=== PATIENT | female | born 1975 | race Caucasian/White ===

== ENCOUNTER 2020-05-12 07:47 | Emergency (ER) | payer MEDICAID, SELFPAY ==
[2020-05-12 07:59] VITALS: BP 101/64; PULSE 81; RESP 20; TEMP 36.8; O2SAT 97; BMI 31.5
[2020-05-12 08:06] VITALS: O2SAT 97
[2020-05-12 08:08] VITALS: BP 101/64; PULSE 82; RESP 20; TEMP 36.8; O2SAT 97
--- NOTE | 2020-05-12 08:38 | XR_ITS ---
EXAMINATION: XR CHEST CLINICAL INFORMATION: Cough. COMPARISON: Chest 02/11/2019. TECHNIQUE: Frontal view of the chest was obtained. FINDINGS: The lungs are well-expanded and clear of acute process. The heart size and pulmonary vascularity is normal. No gross bony abnormality seen. XR/XR chest 1V IMPRESSION: Unremarkable chest exam.
--- NOTE | 2020-05-12 08:39 | ED.URI ---
HPI - URI/Sore Throat General Chief Complaint: Upper Respiratory Symptoms Stated Complaint: flu like Time Seen by Provider: 05/12/20 08:27 Source: patient Mode of arrival: ambulatory Limitations: no limitations History of Present Illness HPI Narrative: patient comes to emergency room complaining of cough, mild chest discomfort while coughing, headache. Patient also complaining of chills, no fever. 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 patient reports 1 episode of vomiting today, no abdominal pain, no diarrhea. Related Data Allergies Allergy/AdvReac Type Severity Reaction Status Date / Time Penicillins [PENICILLINS] Allergy Unknown ANAPHYLAXIS Verified 05/12/20 07:58 Review of Systems Review of Systems: Constitutional : No Weight loss, No Fever, Complaining of chills, fatigue, general malaise ENT/Mouth : No Hearing loss, No Ear Pain, No Nasal Congestion, No Sinus Pain, No Hoarseness, complaining of mild sore throat, No Rhinorrhea, No Swallowing Difficulty Eyes: No Eye Pain, No Swelling, No Redness, No Foreign Body, No Discharge, No Vision Changes Cardiovascular : No Chest Pain, No SOB, No Dyspnea on Exertion, No Orthopnea, No Edema, No Palpitations Respiratory : patient complaining of cough, no sputum Gastrointestinal : patient currently has no nausea, reports 1 episode of vomiting, No Diarrhea, No Constipation, No abdominal Pain, No Hematochezia, No Melena Genitourinary : no irregular bleeding, No Dysuria, No Urinary Frequency, No Hematuria, No Urinary Incontinence, No Urgency, No Flank Pain, No Urinary Flow Changes, No Hesitancy Musculoskeletal : No joint pain, No Myalgias, No Joint Swelling Skin : No Skin Lesions, No rash Neuro : No Weakness, No Numbness, No Paresthesias, No Loss of Consciousness, No Dizziness, No Headache Psych : No Anxiety/Panic, No Depression, No SI/HI/AH/VH, No Social Issues, Heme/Lymph: No Bruising, No Bleeding,No Lymphadenopathy Endocrine : No Polyuria, No Polydipsia, No Temperature Intolerance PMFSH Past Medical History Medical History Anxiety Asthma Depression Social History Social History Alcohol intake: never Smoking Status: Current every day smoker Smoked in Last 30 Days: Yes Substance Use Type: Marijuana Advance Directives: No Advance Directives Information Provided: No Physical Exam Vital Signs: Vital Signs: Vital Signs Temp Pulse Resp BP Pulse Ox 05/12/20 09:48 81 103/65 05/12/20 08:08 98.2 F 82 20 101/64 97 05/12/20 08:06 97 05/12/20 07:59 98.2 F 81 20 101/64 97 Body Mass Index 31.5 Appearance: Alert. Oriented X3. No acute distress. Eyes: Pupils equal, round and reactive to light. ENT: Pharynx normal. Neck: Normal inspection. Neck supple. No lymph nodes noted. No crepitus CVS: Normal heart rate and rhythm. Pulses normal. Normal S1 and S2 Respiratory: No respiratory distress. Breath sounds normal. No Wheezing. No rales Abdomen: Soft and nontender. No rigidity. No distention. good BS x4 Skin: Skin warm and dry. Normal skin color. Normal skin turgor. Extremities: No lower extremity edema. No lower extremity edema. No Lacerations. No Rash Neuro: Oriented X 3. No motor deficit. No sensory deficit. Moving all extermities. No slurred speech. Course Course Course Narrative: I discussed the labs and imaging with the patient, patient tested positive for coronavirus. Chest x-ray does not show pneumonia. Patient's oxygen saturation within normal limits. MDM - URI/Sore Throat Lab Data Result diagrams: 05/12/20 08:53 05/12/20 08:53 Labs: Lab Results 05/12/20 05/12/20 05/12/20 Range/Units 08:52 08:53 08:53 WBC 5.1 (4.8-10.8) X10*3/uL RBC 4.68 (4.20-5.50) X10*6/uL Hgb 14.2 (12.0-16.0) g/dl Hct 40.3 (37-47) % MCV 86.1 (80-98) fL MCH 30.3 (27.0-33.0) pg MCHC 35.2 H (31.0-35.0) g/dl RDW 12.0 (11.0-16.0) % Plt Count 216 (160-400) X10*3/uL MPV 9.9 (9.4-12.3) fL Immature Gran % (Auto) 0.2 (0.0-0.4) % Neut % (Auto) 49.9 (45-73) % Lymph % (Auto) 36.2 (20-40) % [place] % (Auto) 10.5 (2-11) % Eos % (Auto) 2.8 (0-4) % Baso % (Auto) 0.4 (0-2) % Lymph # (Auto) 1.8 (1.2-4.9) X10*3/uL [place] # (Auto) 0.5 (0.1-1.2) X10*3/uL Eos # (Auto) 0.1 (0.0-0.4) X10*3/uL Baso # (Auto) 0.0 (0.0-0.2) X10*3/uL Abs Immat Gran (auto) 0.01 (0.00-0.03) X10*3/uL Absolute Neuts (auto) 2.5 (2.0-8.3) X10*3/uL Absolute Nucleated RBC 0.000 (0.0-0.012) X10*3/uL Nucleated RBC % (auto) 0.0 (0.0-0.2) /100WBC Sodium 140 (135-145) mmol/L Potassium 3.7 (3.3-5.1) mmol/l Chloride 105 (96-108) mmol/L Carbon Dioxide 29 (22-29) mmol/L Anion Gap 10 L (12-20) BUN 12 (9-16) mg/dL Creatinine 0.76 (0.5-1.4) mg/dL Estim Creat Clear Calc 88.8 Estimated GFR > 60 Random Glucose 90 (60-115) mg/dL Calcium 8.2 L (8.4-10.2) mg/dL Coronavirus (PCR) POSITIVE A (Negative) Discharge Plan Discharge Clinical Impression: COVID-19 Patient Disposition: Home, Self-Care Instructions: COVID-19 (Coronavirus Disease 2019) (ED) Additional Instructions: please stay isolated at home for the next 14 days. Please follow-up with your primary care physician. if you have any worsening shortness of breath, please return to the emergency room or call 911. Stand Alone Forms: Work/School Release
[2020-05-12 09:00] LABS: MANUAL DIFF FLAG NO
[2020-05-12 09:05] LABS: Basophils Percent Auto 0.4 % (0-2); Eosinophils Absolute Auto 0.1 X10*3/uL (0.0-0.4); Eosinophils Percent Auto 2.8 % (0-4); Hematocrit 40.3 % (37-47); Hemoglobin 14.2 g/dl (12.0-16.0); Imm Gran Abs Auto 0.01 X10*3/uL (0.00-0.03); Imm Gran Pct Auto 0.2 % (0.0-0.4); Lymphocytes Absolute Auto 1.8 X10*3/uL (1.2-4.9); Lymphocytes Percent Auto 36.2 % (20-40); Mean Corpuscular HGB Conc 35.2 g/dl (31.0-35.0); Mean Corpuscular Hemoglobin 30.3 pg (27.0-33.0); Mean Corpuscular Volume 86.1 fL (80-98); Mean Platelet Volume 9.9 fL (9.4-12.3); Monocytes Absolute Auto 0.5 X10*3/uL (0.1-1.2); Monocytes Percent Auto 10.5 % (2-11); Neutrophils Absolute Auto 2.5 X10*3/uL (2.0-8.3); Neutrophils Percent Auto 49.9 % (45-73); Platelet Count 216 X10*3/uL (160-400); Red Blood Count 4.68 X10*6/uL (4.20-5.50); White Blood Count 5.1 X10*3/uL (4.8-10.8)
[2020-05-12 09:33] LABS: Anion Gap 10 (12-20); Blood Urea Nitrogen 12 mg/dL (9-16); Calcium 8.2 mg/dL (8.4-10.2); Carbon Dioxide 29 mmol/L (22-29); Chloride 105 mmol/L (96-108); Creatinine Clr Calc Pharmacy 88.8; Estimated Glomerular Filt Rate > 60; Glucose Random 90 mg/dL (60-115); Potassium 3.7 mmol/l (3.3-5.1); Sodium 140 mmol/L (135-145)
[2020-05-12 09:45] LABS: SARS COV2 PCR INHOUSE POSITIVE (Negative)
[2020-05-12 09:48] VITALS: BP 103/65; PULSE 81
== END 2020-05-12 11:22 | disposition home or self-care (01) ==
PROVIDERS: Emergency Provider Emergency Medicine
DX: U07.1 COVID-19 (principal); R05 Cough; R07.9 Chest pain, unspecified; R51.9 Headache, unspecified; F17.200 Nicotine dependence, unspecified, uncomplicated; Z71.6 Tobacco abuse counseling; F12.90 Cannabis use, unspecified, uncomplicated
CPT/HCPCS: 36415; 71045; 80048; 85025; 99283; 99284; U0003

== ENCOUNTER 2021-08-01 18:11 | Emergency (ER) | payer MEDICAID, SELFPAY ==
[2021-08-01 18:15] VITALS: BP 117/83; PULSE 76; RESP 18; TEMP 36.9; O2SAT 100; BMI 30.2
--- NOTE | 2021-08-01 19:03 | ED_ITS ---
HPI - Dental/Oral General Chief complaint: Dental/Oral Stated complaint: [place] tooth extraction- sharp pain (right) Time Seen by Provider: 08/01/21 19:01 Source: patient Mode of arrival: ambulatory Limitations: no limitations History of Present Illness HPI Narrative: This is a 46-year-old female past medical history anxiety, depression and asthma presenting to the emergency department complaints of 10 at at 10 pain status post wisdom teeth removal. Patient tells me that she had her right lower wisdom tooth extracted on July 25 without complications, she has no experiencing severe pain. She was not put on antibiotics. He is a current daily smoker and has continued to smoke even after procedure. She denies fevers, chills, nausea, vomiting, chest pain, shortness of breath, abdominal pain, weakness, lethargy, sore throat, ear pain pain with swallowing. MD Complaint: tooth pain Location: Tooth # (17) Teeth map: 1. Lower right wisdom tooth removed on 07/25/2021 Onset (ago): day(s) (7) Duration: constant Severity: severe Severity scale (1-10): 10 Relieving factors: nothing Exacerbating factors: nothing Context: other (Recent extraction of wisdom tooth.) Treatment prior to arrival: none Related Data Previous Rx's Medication Instructions Recorded oxycodone 5 mg tablet 5 mg PO BID PRN #6 tab 08/01/21 Allergies Allergy/AdvReac Type Severity Reaction Status Date / Time Penicillins [PENICILLINS] Allergy Severe ANAPHYLAXIS Verified 08/01/21 18:15 Review of Systems Review of Systems: Constitutional : No Fever, No Chills, Cardiovascular : No Chest Pain, No SOB HEENT: No sore thorat, No difficulty swollowing, + pain overlying area around tooth #17 Respiratory : No Dyspnea Gastrointestinal : No abdominal pain Musculoskeletal : No Joint Swelling Skin : No rash, No skin laceration Neuro : No Weakness, No Numbness Psych : No SI/HI Yes all other systems are reviewed and are negative PMFSH Past Medical History Attestation statement: The following information was validated with the patient. Source: old records reviewed and nursing notes reviewed Medical History Anxiety Asthma Depression Social History Social History Alcohol intake: never Substance Use Type: Marijuana Advance Directives: No Advance Directives Information Provided: Yes Patient : No Physical Exam Vital Signs: Vital Signs: Last Vital Signs Temp 98.5 F 08/01/21 18:15 Pulse 76 08/01/21 18:15 Resp 18 08/01/21 18:15 BP 117/83 08/01/21 18:15 Pulse Ox 100 08/01/21 18:15 BMI result Body Mass Index 30.2 VSS Appearance: Alert.? Oriented X3.? No acute distress.? Head: Normocephalic, atraumatic, no step-offs or deformities Eyes: Pupils equal, round and reactive to light.? ENT: Pharynx normal.?+ pain to there area where tooth #17 would be. Patient recently got it extracted, no overlying skin changes, no abscess formation, no erythema or swelling. Area appears to be healing well. + pain to palpation Neck: Normal inspection.? Neck supple.? CVS: Normal heart rate and rhythm.? Pulses normal.? Respiratory: No respiratory distress.? Breath sounds normal.? Abdomen: Soft and nontender.? Skin: Skin warm and dry.? Normal skin color.? Normal skin turgor.? Neuro: Oriented X 3.? No motor deficit.? No sensory deficit. Course Reevaluation(s) Reevaluation #1: I am sending patient home on oxycodone 5 mg p.o. b.i.d. as needed for pain. I have advised her that this is a narcotic and can cause dependence. I have checked her Mass Pat it appears as though she has never filled narcotic before. I have advised her to follow-up with her dentist. At this time I do not feel as though initiation of an antibiotic is appropriate. I feel comfortable with discharge home with PCP and dental follow-up tomorrow. Time: 19:19 MDM - Dental/Oral MDM Narrative Medical decision making narrative: [age] yo f pmhx anxiety, depression, asthma presents with pain overlying area of tooth 17., patient recently got tooth 17. Extracted on July 25, with no complications. She reports severe pain. Not on antibiotics. Reports continuing to smoke despite being told not to Physical examination significant for pain to palpation where to is 17. Would be, appears to be healing well no overlying skin changes, abscess formation or erythema. Plan at this time is to discharge patient home with dental follow-up. Medical Records Attestation: I reviewed the patient's medical records. Lab Data Attestation: I reviewed the patient's lab results. Critical Care Time Critical Care Time Critical Care Time: No Discharge Plan Discharge Clinical Impression: Toothache Patient Disposition: Home, Self-Care Instructions: Toothache (ED) Additional Instructions: Take your medications as prescribed. If you were prescribed antibiotics today, it is important that you take your medication to their entirety, do not skip any doses, do not finish them early. Follow-up with your primary care provider this week. Please follow up with a dentist tomorrow. Return to the emergency department with new or worsening symptoms. In case of emergency call 911 I attest that I have reviewed patients MassPAT, and at the time prescribing the patient a controlled substance is appropriate based off of patients diagnosis and treatment plan. Prescriptions: New oxycodone 5 mg tablet 5 mg PO BID PRN (Reason: pain) Qty: 6 RF: 0 Referrals: Physician,Unknown J [Primary Care Provider] - 2 days Stand Alone Forms: Dental Emergency Numbers
== END 2021-08-01 19:28 | disposition home or self-care (01) ==
PROVIDERS: Emergency Provider Internal Medicine
DX: K08.89 Other specified disorders of teeth and supporting structures (principal)
CPT/HCPCS: 99283

== ENCOUNTER 2021-10-02 12:51 | Emergency (ER) | payer MEDICAID, SELFPAY ==
--- NOTE | ~2021-10-02 | XR_ITS ---
EXAMINATION: XR CHEST CLINICAL INFORMATION: Chest pain COMPARISON: Chest x-ray 05/12/2020 TECHNIQUE: Frontal view of the chest was obtained. 2:05 PM FINDINGS: No significant abnormality is noted involving the heart, lungs, mediastinum, bony thorax or soft tissues. XR/XR chest 1V IMPRESSION: Unremarkable examination.
[2021-10-02 13:36] VITALS: BP 110/76; PULSE 86; RESP 18; O2SAT 100; BMI 30.7
--- NOTE | 2021-10-02 13:38 | ECG_ITS ---
Test Reason : CHEST PAIN Blood Pressure : / mmHG Vent. Rate : 080 BPM Atrial Rate : 080 BPM P-R Int : 152 ms QRS Dur : 086 ms QT Int : 386 ms P-R-T Axes : 053 021 023 degrees QTc Int : 445 ms Normal sinus rhythm Normal ECG When compared with ECG of 11-FEB-2019 18:24, No significant change was found Referred By: Generic ED Physician Electronically Signed By:GABRIELA WELDON
[2021-10-02 14:03] LABS: MANUAL DIFF FLAG NO
[2021-10-02 14:04] LABS: Appearance Urine HAZY; Color Urine YELLOW; Eosinophils Absolute Auto 0.2 X10*3/uL (0.0-0.4); Eosinophils Percent Auto 2.4 % (0-4); Glucose Urine UA NEG (NEG); Hematocrit 40.3 % (37.0-47.0); Hemoglobin 13.8 g/dl (12.0-16.0); Imm Gran Abs Auto 0.02 X10*3/uL (0.00-0.03); Imm Gran Pct Auto 0.3 % (0.0-0.4); Leukocyte Esterase Urine NEG (NEG); Lymphocytes Absolute Auto 2.3 X10*3/uL (1.2-4.9); Lymphocytes Percent Auto 32.2 % (20-40); Mean Corpuscular HGB Conc 34.2 g/dl (31.0-35.0); Mean Corpuscular Hemoglobin 29.2 pg (27.0-33.0); Mean Corpuscular Volume 85.2 fL (80.0-98.0); Monocytes Absolute Auto 0.3 X10*3/uL (0.1-1.2); Monocytes Percent Auto 4.7 % (2-11); Neutrophils Absolute Auto 4.2 x10*3/uL (2.0-8.3); Neutrophils Percent Auto 60.4 % (45-73); Nitrite Urine NEG (NEG); PH 5.5 (5.0-8.0); Platelet Count 263 X10*3/uL (160-400); Red Blood Count 4.73 X10*6/uL (4.20-5.50); Red Cell Distribution Width 12.7 % (11.0-16.0); Specific Gravity - Urine 1.025 (1.005-1.025); UACC Culture Trigger NO; Urine Blood 1+ (NEG); Urine Ketones NEG (NEG); Urine Protein NEG (NEG-TRACE)
[2021-10-02 14:06] LABS: UPreg QC Valid YES; Urine Pregnancy NEGATIVE (NEGATIVE)
[2021-10-02 14:17] LABS: Bacteria Urine TRACE /LPF; Mucus Urine TRACE /LPF; RBC Urine 0 /HPF (0); Squamous Epithelial Cell Urine TRACE /LPF; WBC Urine 0-2 /HPF (0-4)
[2021-10-02 14:22] LABS: Anion Gap 12 (12-20); Blood Urea Nitrogen 11 mg/dL (9-16); Calcium 9.3 mg/dL (8.4-10.2); Carbon Dioxide 23 mmol/L (22-29); Chloride 109 mmol/L (96-108); Creatinine Clr Calc Pharmacy 95.3; Estimated Glomerular Filt Rate > 60; Glucose Random 117 mg/dL (60-115); Potassium 3.8 mmol/L (3.3-5.1); Sodium 140 mmol/L (135-145)
[2021-10-02 14:30] LABS: Troponin-I High Sensitivity < 3.5 ng/L (<3.5-17.0)
== END 2021-10-02 18:12 | disposition left against medical advice (07) ==
LOC: HO.ED 15:27
PROVIDERS: Emergency Provider Emergency Medicine; PCP Family Medicine
DX: R07.9 Chest pain, unspecified (principal); F41.9 Anxiety disorder, unspecified; J45.909 Unspecified asthma, uncomplicated; F12.90 Cannabis use, unspecified, uncomplicated
CPT/HCPCS: 36415; 71045; 80048; 81001; 81025; 84484; 85025; 93005; 99283

== ENCOUNTER 2022-06-08 12:36 | Outpatient (REF) | payer MEDICAID, SELFPAY ==
--- NOTE | ~2022-06-08 | US_ITS ---
EXAMINATION: US RETROPERITONEAL LIMITED (RENAL ONLY) CLINICAL INFORMATION: Microscopic hematuria. COMPARISON: None TECHNIQUE: Real-time imaging of the kidneys. FINDINGS: RIGHT KIDNEY: 11.5 x 6.0 x 5.3 cm (SAG x AP x TRV). The kidney is normal in size, contour, and echogenicity. Renal cortical thickness is normal. No calculi or focal parenchymal lesions. There is pelviectasis, without renetta hydronephrosis. LEFT KIDNEY: 11.6 x 6.0 x 4.9 cm (SAG x AP x TRV). The kidney is normal in size, contour, and echogenicity. Renal cortical thickness is normal. No focal parenchymal lesions or hydronephrosis. At the upper pole, a 4 mm nonobstructing calculus is seen, with twinkle artifact. US/US renal BI IMPRESSION: 1. A 4 mm nonobstructing left renal calculus is seen. No right renal calculus is seen. 2. There is mild right renal pelviectasis. No renetta hydronephrosis is seen bilaterally. 3. No renal mass lesion is noted bilaterally.
== END 2022-06-08 12:37 | disposition home or self-care (01) ==
LOC: HO.US 12:36
PROVIDERS: Visit Provider Family Medicine
DX: R31.29 Other microscopic hematuria (principal)
CPT/HCPCS: 76775

== ENCOUNTER 2022-06-27 13:14 | Outpatient (REF) | payer MEDICAID, SELFPAY ==
[2022-06-27 15:39] LABS: Thyroid Stimulating Hormone 1.89 uIU/mL (0.32-4.0)
== END 2022-06-27 13:15 | disposition home or self-care (01) ==
LOC: HO.LAB 13:14
PROVIDERS: PCP Family Medicine; Visit Provider Advanced Practice Midwife
DX: R23.2 Flushing (principal); R45.86 Emotional lability; Z78.0 Asymptomatic menopausal state
CPT/HCPCS: 36415; 83001; 84443; 99212

== ENCOUNTER 2023-03-12 20:47 | Emergency (ER) | payer MEDICAID, SELFPAY ==
--- NOTE | 2023-03-12 | ECG_ITS ---
Test Reason : CHEST PAIN Blood Pressure : / mmHG Vent. Rate : 065 BPM Atrial Rate : 065 BPM P-R Int : 160 ms QRS Dur : 092 ms QT Int : 422 ms P-R-T Axes : 046 016 026 degrees QTc Int : 438 ms Normal sinus rhythm Incomplete right bundle branch block Borderline ECG When compared with ECG of 02-OCT-2021 13:43, No significant change was found Referred By: Generic ED Physician Electronically Signed By:GARO REID
--- NOTE | ~2023-03-12 | XR_ITS ---
EXAMINATION: XR CHEST 2 VIEWS CLINICAL INFORMATION: Cough. COMPARISON: Chest radiographs dated 09/24/2021. TECHNIQUE: Frontal and lateral views of the chest were obtained. FINDINGS: The heart, great vessels, pulmonary vasculature and mediastinum are normal. The lungs show no focal infiltrate, effusion or pneumothorax. There is bilateral bronchiolar wall thickening. There is no acute osseous abnormality. XR/XR chest 2V IMPRESSION: 1. No focal infiltrate or congestive heart clear seen. 2. There is bilateral bronchiolar wall thickening, which can be associated with acute bronchiolitis or reactive airways disease.
[2023-03-12 21:14] VITALS: BP 126/73; PULSE 67; RESP 16; TEMP 37.1; O2SAT 100; BMI 29.8
[2023-03-12 21:40] LABS: Hematocrit 37.9 % (37.0-47.0); Hemoglobin 13.4 g/dl (12.0-16.0); Mean Corpuscular HGB Conc 35.4 g/dl (31.0-35.0); Mean Platelet Volume 10.1 fL (9.4-12.3); Platelet Count 269 X10*3/uL (160-400); Red Blood Count 4.46 X10*6/uL (4.20-5.50); Red Cell Distribution Width 12.5 % (11.0-16.0); White Blood Count 8.2 X10*3/uL (4.8-10.8)
[2023-03-12 21:50] LABS: COVID-19 Test Negative (Negative); IDNOW Serial# BCCEAD1C
[2023-03-12 22:01] LABS: Alanine Aminotransferase 9 U/L (0-31); Alkaline Phosphatase 80 U/L (39-117); Anion Gap 12 (12-20); Aspartate Amino Transferase 17 U/L (5-31); Bilirubin Total 0.7 mg/dL (0.0-1.0); Blood Urea Nitrogen 13 mg/dL (9-16); Calcium 9.3 mg/dL (8.4-10.2); Carbon Dioxide 28 mmol/L (22-29); Chloride 107 mmol/L (96-108); Creatinine Clr Calc Pharmacy 75.1; Estimated Glomerular Filt Rate > 60; Glucose Random 96 mg/dL (60-115); Potassium 3.5 mmol/L (3.3-5.1); Sodium 143 mmol/L (135-145); Total Protein 7.2 g/dL (6.5-8.0)
[2023-03-12 22:44] LABS: Troponin-I High Sensitivity < 2.7 ng/L (<3.5-17.0)
== END 2023-03-13 01:06 | disposition left against medical advice (07) ==
PROVIDERS: Emergency Provider Emergency Medicine; PCP Family Medicine
DX: R07.9 Chest pain, unspecified (principal); R05.9 Cough, unspecified; Z20.822 Contact with and (suspected) exposure to COVID-19
CPT/HCPCS: 36415; 71046; 80053; 84484; 85027; 87635; 93005; 99283

== ENCOUNTER 2024-09-12 21:00 | Emergency (ER) | payer MEDICAID, SELFPAY ==
[2024-09-12 21:15] VITALS: BP 106/65; PULSE 78; RESP 16; TEMP 36.6; O2SAT 98; BMI 29.5
--- OUTSIDE RECORDS SUMMARY | 2024-09-13 00:40 | XMS_ITS | Encounter Summary ---
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 Role Phone Maliha Bashir MD Primary Care Provider [phone] Reason for Visit * Reason Comments Med Change Request Encounter Details Date Type Department Care Team ([facility] Contact Info) Description 09/07/2024 Refill [facility]ULT D[facility]AL [address], [place] [id number] Justin Ching, LYNETTE [address] [place] [address] Dental caries Social History Tobacco Use Types Packs/Day Years Used Date Smoking Tobacco: Every Day Cigarettes Passive Smoke Exposure: Never Smokeless Tobacco: Never Alcohol Use Standard Drinks/Week Comments Never 0 (1 standard drink = 0.6 oz pur e alcohol) Depression Answer Date Recorded Patient Health Questionnaire-9 Score 21 06/12/2022 Housing Stability Answer Date Recorded What is your housing situation today? I do not have housing (Staying with others, in a hotel, in a mcc, living outside on the street, on a beach, in a car, or in a park 04/14/[address] you li ve. Do you have problems with any of the following? I am not sure 04/14/2023 Food Insecurity Answer Date Recorded Within the past 12 months, y ou worried that your food would run out before you got money to buy more: Sometimes True 2022 Within the past 12 months,th e food you bought just didn't last and you didn't have enough money to get more: Sometimes True 05/13/2023 Transportation Answer Date Recorded In the past 12 months, has l ack of transportation kept you from medical appts, meetings, work or from getting things needed for daily living? No 05/13/2023 Utilities Answer Date Recorded In the past 12 months, has t he electric, gas, oil or water company threatened to shut off services in your home? No 05/13/2023 Depression Answer Date Recorded Patient Health Questionnaire-2 Score 6 10/08/2022 Comments Unknown Sex and Gender Information Value Date Recorded Sex Assigned at Female 05/07/2022 10:37 AM EDT Legal Sex Female 10:37 AM EDT Gender Identity Female 05/07/2022 10:37 AM EDT Sexual Orientation Straight 05/07/2022 10 :37 AM EDT documented as of this encounter Plan of Treatment Upcoming Encounters Date Type Department Care Team (Late st Contact Info) Description 10/07/2024 2:00 PM EDT Office Visit [facility] ADULT D[facility]AL [address] [place] [address] Rachel Villalta documented as of this encounter Visit Diagnoses Diagnosis Dental caries Unspecified dental caries documented in this encounter Additional Health Concerns Assessment Noted Time PHQ-9 Depression Total Score: 21 022 1:20 PM EST documented as of this encounter Care Teams Marine [employer] Repairer Relationship Specialty Start Date End Date Maliha Bashir MD [address] [place] [address] PCP - General Family Medicine 03/08/21 documented as of this encounter
--- OUTSIDE RECORDS SUMMARY | 2024-09-13 00:40 | XMS_ITS | Data Portability ---
Author Organization [facility], , [facility] Address [address] [place] [address] Care Team Providers Care Java Portal Developer Name Role Phone CONSTANCE BENSON Primary Care Provider ADRIAN Giraldo Second Helper Assessment Encounter Date Assessment Date Assessment LastModified by Organization Details LastModified Time 10/07/2015 10/07/2015 Viral URI with costochondritis .? ? ? 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 it should help benefit her current symptoms. [email or web address] Not available 03/02/2016 11:45:09 Plan of Treatment Reminders Order Date Submit Date Provider Last Modified By Organization Details Last Modified Time Details Appointments None recorded. 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 now havinh pain and spasms. please evaluate and treat 2015 016 [facility], [address] [place] [address], [place], [address], 7 05:01:59 Procedures None recorded. Surgeries None recorded. Imaging None recorded. Medication Orders gabapentin 100 mg capsule 2015 016 DBA_PATCH_ [id number] [facility], [address] [place] [address], [address], 6 04:06:43 naproxen 375 mg tablet 2015 016 [facility], [address] [place] [address], [address], 6 04:06:50 ciprofloxa amos 250 mg tablet 2015 016 [facility], [address] [place] [address], [address], 6 04:03:31 Nicoderm CQ 14 mg/24 hr daily transderma l patch 2015 016 [facility], [address] [place] [address], [address], 6 04:03:16 Wellbutrin SR 150 mg tablet, 12 hr sustained- release 2015 016 DBA_PATCH_ [id number] [facility], [address] [place] [address], [address], 6 04:03:12 dexamethas one 0.75 mg tablet 2015 016 INTERFACE [facility], [address] [place] [address], [address], 6 14:09:44 Wellbutrin SR 150 mg tablet, 12 hr sustained- release 2015 016 [email or web address] [facility], [address] [place] [address], [address], 6 13:52:29 Nicoderm CQ 14 mg/24 hr daily transderma l patch 2015 016 [email or web address] [facility], [address] [place], [address], 6 13:52:29 Calcium 600 + D(3) 600 mg-10 mcg (400 unit) tablet 2015 016 ncypher [facility], [address] [place], [address], 6 11:18:55 Patient TargetsNo targets recorded. Patient Instructions Encounter Date Encounter Id Patient Instructions Last Modified By Organization Details Last Modified Time 09/13/2015 [id number] Quitting Tobacco: Care Instructions Not available 09/13/2015 12:18:56 deciding about using medicines to quit smoking Not available 09/13/2015 12:18:56 01/05/2016 [id number] urinary tract infection (uti) education DBA_PATCH_ 217 Not available 06/23/2016 04:03:31 deciding about using medicines to quit smoking DBA_PATCH_ 217 Not available 06/23/2016 04:02:50 Quitting Tobacco: Care Instructions DBA_PATCH_ 217 Not available 06/23/2016 04:02:50 Counseling done {{Patient not ready to quit Contemplati ng quitting Taperin g Cigarettes tyrell d up for support prescrip tion for stop smoking medication given}} {{Patient not ready to quit Contemplati ng quitting Taperin g Cigarettes tyrell d up for support prescrip tion for stop smoking medication given}} Goal for follow up visit {{adding exercise regular meals stress management impro ving sleep therapist identifying sponsor}} {{adding exercise regular meals stress management impro ving sleep therapist identifying sponsor}} {{adding exercise regular meals stress management impro ving sleep therapist identifying sponsor}}My Health To Do List {{go to goCatch www.gate5.Teachernow or call s ign up for priscila text 2 quit or other stop smoking priscila contact Funambol.gov}} {{go to quitRoozt.com or call s ign up for priscila text 2 quit or other stop smoking priscila contact smokeStockRadar.gov}} {{go to quitAviate.Eloqua or call s ign up for priscila text 2 quit or other stop smoking priscila contact Funambol.gov}} [email or web address] Not available 01/05/2016 17:41:14 03/02/2016 [id number] You have received a new prescription today. We have discussed indications for new prescription, risks and benefits of medication, common side effects and how to manage, and reasons to notify prescriber of adverse effects or discontinuation. [email or web address] Not available 03/02/2016 11:40:52 05/25/2016 [id number] deciding about using medicines to quit smoking DBA_PATCH_ 217 Not available 06/23/2016 04:10:27 Quitting Tobacco: Care Instructions DBA_PATCH_ 217 Not available 06/23/2016 04:10:27 Counseling done {{Patient not ready to quit Contemplati ng quitting Taperin g Cigarettes tyrell d up for support prescrip tion for stop smoking medication given}} {{Patient not ready to quit Contemplati ng quitting Taperin g Cigarettes tyrell d up for support prescrip tion for stop smoking medication given}} Goal for follow up visit {{adding exercise regular meals stress management impro ving sleep therapist identifying sponsor}} {{adding exercise regular meals stress management impro ving sleep therapist identifying sponsor}} {{adding exercise regular meals stress management impro ving sleep therapist identifying sponsor}}My Health To Do List {{go to BuildersCloud or call s ign up for priscila text 2 quit or other stop smoking priscila contact smokeStockRadar.gov}} {{go to BuildersCloud or call s ign up for priscila text 2 quit or other stop smoking priscila contact smokeStockRadar.gov}} {{go to BuildersCloud or call s ign up for priscila text 2 quit or other stop smoking priscila contact Funambol.gov}} [email or web address] Not available 05/25/2016 17:23:09 Reason for Referral strian through neck, thoraci c back adn lumbar 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 now havinh pain and spasms. please evaluate and treat Referring Physician: Radha Weeks, Family Medicine, Encounter Date: 03/02/2016 Results Created Date Observation Date Name Description Value Unit Range Abnormal Flag Note LastModifiedBy Organization Detail LastModifiedTime 01/05/20 16 01/05/2016 POC UA glu UA NEGATI VE Not Available [address], [address], 01/05/2016 17:37:22 01/05/20 16 01/05/2016 POC UA clarity UA CLEAR Not Available [address], [address], 01/05/2016 17:37:22 01/05/20 16 01/05/2016 POC UA uro UA 0.2000 Not Available [address], [address], 01/05/2016 17:37:22 01/05/20 16 01/05/2016 POC UA ket UA NEGATI VE Not Available [address], [address], 01/05/2016 17:37:22 01/05/20 16 01/05/2016 POC UA pro UA NEGATI VE Not Available [address], [address], 01/05/2016 17:37:22 01/05/20 16 01/05/2016 POC UA nit UA NEGATI VE Not Available [address], [address], 01/05/2016 17:37:22 01/05/20 16 01/05/2016 POC UA ashleigh UA NEGATI VE Not Available [address], [address], 01/05/2016 17:37:22 01/05/20 16 01/05/2016 POC UA pH UA 6.0000 Not Available [address], [address], 01/05/2016 17:37:22 01/05/20 16 01/05/2016 POC UA SG UA 1.0200 Not Available [address], [address], 01/05/2016 17:37:22 01/05/20 16 01/05/2016 POC UA color UA YELLOW Not Available [address], [address], 01/05/2016 17:37:22 01/05/20 16 01/05/2016 POC UA blo UA 2+ abnormal Not Available [address], [address], 01/05/2016 17:37:22 01/05/20 16 01/05/2016 POC UA pro UA NEGATI VE Not Available [address], [address], 01/05/2016 17:37:22 01/05/20 16 01/07/2016 cultu re, urine culture, urine, routine CULTU RE, URINE , ROUTI NE MICRO NUMBE R: [id number] TEST STATU S: FINAL SPECI MEN SOURC E: URINE SPECI MEN QUALI TY: ADEQU ATE RESUL T: Multi ple organ isms prese nt, each less than 10,00 0 CFU/m L. These organ isms, commo nly found on exter nal and inter nal genit aleyda, are consi dered to be colon izers . No furth er testi ng perfo rmed. Not Available [facility] [address], [place], [address], 01/12/2016 16:42:13 Result Notes None recorded. Problems Name Problem SNOMED Code Status Onset Date Resolution Date Notes Provider Name and Address Organization Details Recorded Time Tobacco dependence syndrome 51349704 Active Aixa Wilhelm RN [facility], [facility] 3 06:22:33 Dyspnea 679728793 Completed 05/27/2013 Not Available [facility] 3 02:02:46 Female genital organ symptoms 347677121 Completed 200605/03/2011 Not Available [facility] [place] 3 03:04:58 Alopecia 90932921 Completed 200605/03/2011 Not Available [facility] [place] 3 03:04:58 Common cold 38925381 Completed 200604/20/2011 Not Available [facility] 3 03:04:58 Allergic rhinitis 28194266 Completed 199904/20/2011 Not Available [facility] 3 03:04:58 Malaise and fatigue 402658110 Completed 200604/20/2011 Not Available [facility] [place] 3 03:04:58 Urticaria 232985695 Completed 200605/03/2011 Not Available [facility] 3 03:04:58 Vaginitis and vulvovagin itis Completed 200704/20/2011 Not Available [facility] 3 03:04:58 Problem Notes None recorded. Procedures Surgical History Date Name Laterality Status Provider Name and Address Organization Details Recorded Time 6 Smoking cessation counseling completed Zbigniew Cooper LPN [facility] 05/25/2016 17:23:09 6 Smoking cessation counseling completed [facility] 01/05/2016 17:41:14 6 POC Urinalysis Testing completed [facility] 01/05/2016 17:38:12 6 Smoking cessation counseling completed [facility] 09/13/2015 11:45:32 6 Carbon Monoxide Testing completed [facility] 09/13/2015 11:45:22 6 Smoking cessation counseling completed [facility] 08/31/2015 11:26:05 3 Smoking cessation counseling completed Shoshana Jaramillo [facility] 02/26/2013 09:39:30 1 Smoking cessation counseling completed Lauren Jasso [facility] 04/12/2011 10:40:45 Imaging Results None recorded. Procedure Notes None recorded. Medical Equipment None Reported. Allergies Allergen ID Allergen Name Allergen Category Reaction Reaction Severity Criticality Documentation Date Start Date Code Code System Note Provider Name and Address Organization Details Recorded Time Product containin g penicilli n (product) medicatio n Not available Not available Not available 09/15/2009 64169 8001 SNOMED Not Available [facility] 1 06:05:41 Medications Name Sig Start Date Stop Date Status Note LastModified by Organization Details LastModified Time cyclobenzap rine 10 mg tablet TAKE 1 TABLET(S) 3 TIMES A DAY BY ORAL ROUTE NEEDED. 03/02 completed Not Available Not Available Not Available Nasal [place] (oxymetazol ine) 0.05 % TAKE ACCORDING TO LABEL INSTRUCTI ONS active Not Available Not Available No t Available bupropion HCl SR 150 mg tablet,12 hr sustained-r elease TAKE 1 TAB IN AM X1 WEEK THEN 1 TAB TWICE DAILY (2ND DOSE BEFORE 4PM) START 1-2 WKS BEFORE PATCHES active Not Available Not Available No t Available prednisone 10 mg tablet 6 tabs daily x 2 days then 5 tabs daily x 2 days then 4 tabs daily x 2 days then 3 tabs daily x 2 days then 2 tabs daily x 2 days then 1 tabs daily x 2 day 2009 active Not Available Not Available Not Avai lable naproxen 375 mg tablet TAKE 1 TABLET BY MOUTH TWICE A DAY NEEDED TAKE WITH FOOD 05/25 completed Not Available Not Available Not Available nicotine 14 mg/24 hr daily transdermal patch APPLY 1 PATCH TO SKIN EVERY MORNING AND REMOVE AT BEDTIME active Not Available Not Available No t Available azithromyci n 250 mg tablet Take 2 tablets (500 mg) by oral route once daily for 1 day then 1 tablet (250 mg) by oral route once daily for 4 days 05/25 completed Not Available Not Available Not Available prednisone 20 mg tablet TAKE 2 TABLETS BY MOUTH EVERY DAY FOR 5 DAYS 05/25 completed Not Available Not Available Not Available acetaminoph en 300 mg-codeine 30 mg tablet TAKE 1 TABLET BY MOUTH EVERY 6 HOURS NEEDED SEVERE PAIN 03/02 completed Not Available Not Available Not Available ciprofloxac in 250 mg tablet TAKE 1 TABLET BY MOUTH EVERY 12 HOURS FOR 5 DAYS 03/02 completed Not Available Not Available Not Available oxycodone-a cetaminophe n 5 mg-325 mg tablet active Not Available Not Available No t Available codeine 10 mg-guaifene sin 100 mg/5 mL Syrup Take 5 mL every 4 hours by oral route as needed. 2011 active Not Available Not Available Not Avai lable dexamethaso ne 0.75 mg tablet TAKE 3 TABLET(S) EVERY DAY BY ORAL ROUTE IN THE MORNING FOR 5 DAYS. 01/04 completed Not Available Not Available Not Available hydroxyzine HCl 25 mg tablet Take 1 tablet 4 times a day by oral route as needed. 2009 active Not Available Not Available Not Avai lable codeine 10 mg-guaifene sin 100 mg/5 mL oral liquid Take 10 mL every 4 hours by oral route. 2010 active Not Available Not Available Not Avai lable gabapentin 100 mg capsule TAKE 1 TO 2 CAPSULES BY MOUTH TWICE A DAY , THEN 1 TO 3 CAPSULES AT BEDTIME 05/25 completed Not Available Not Available Not Available ibuprofen 600 mg tablet active Not Available Not Available Not Available loratadine 10 mg tablet Take 1 tablet every day by oral route for 30 days. 2009 active Not Available Not Available Not Avai lable naproxen 500 mg tablet active Not Available Not Available Not Available oxycodone 5 mg tablet active Not Available Not Available No t Available Bactrim DS 800 mg-160 mg tablet Take 1 tablet every 12 hours by oral route for 10 days. 04/22 completed Not Available Not Available Not Available cyclobenzap rine 5 mg tablet active Not Available Not Available Not Available ProAir HFA 90 mcg/actuati on aerosol inhaler Inhale 2 puffs every 4-6 hours by inhalatio n route as needed. 2012 active Not Available Not Available Not Avai lable Calcium 600 + D(3) 600 mg-10 mcg (400 unit) tablet Take 1 tablet twice a day by oral route. 03/02 completed Not Available Not Available Not Available Vitals Date Recorded Body height Body weight Body mass index (BMI) Heart rate Systolic blood pressure Diastolic blood pressure Provider Name and Address Organization Details Last Updated DateTime 6 158.75 cm 29877.1 8683 g 28.6 kg/m2 76 /min 98 mm[Hg] 66 mm[Hg] [facility] 6 11:38:45 Date Recorded Body height Body weight Body mass index (BMI) Oxygen saturation Oxygen saturation in Arterial blood by Pulse oximetry Body temperature Heart rate Systolic blood pressure Diastolic blood pressure Provider Name and Address Organization Details Last Updated DateTime 6 158.75 cm 05647.8 1735 g 27.9 kg/m2 99 % 99 % 98.5 [degF] 82 /min 134 mm[Hg] 88 mm[Hg] Lianet Peña TREE SURGEON HELPER [facility] 6 13:55:01 Date Recorded Body height Body weight Body mass index (BMI) Heart rate Systolic blood pressure Diastolic blood pressure Provider Name and Address Organization Details Last Updated DateTime 6 158.75 cm 47517.1 9 g 28.6 kg/m2 68 /min 100 mm[Hg] 70 mm[Hg] [facility] 6 16:53:46 Date Recorded Body height Body weight Body mass index (BMI) Heart rate Systolic blood pressure Diastolic blood pressure Provider Name and Address Organization Details Last Updated DateTime 6 158.75 cm 40422.7 3 g 23.4 kg/m2 80 /min 110 mm[Hg] 74 mm[Hg] Laura Perla [facility] 6 11:20:25 Date Recorded Body height Body weight Body mass index (BMI) Heart rate Systolic blood pressure Diastolic blood pressure Provider Name and Address Organization Details Last Updated DateTime 6 158.75 cm 29015.4 9 g 26.3 kg/m2 76 /min 126 mm[Hg] 72 mm[Hg] Zbigniew vargas TREE SURGEON HELPER [facility] 6 17:24:15 Social History Question Answer Notes LastModified by Organizat ion Details LastModified Time Tobacco Smoking Status Current Every Day Smoker 7 cigs a day Declined 01/05/16 03/02/16 Radha Weeks PA-C [address] [place] [address], [id number], [facility] 02/26/2013 09:58:40 What Is Your Level Of Alcohol Consumption? None Information not available 01/01/2013 Do You Wear A Helmet When Biking? Yes Information not available 09/13/2015 What Is Your Level Of Caffeine Consumption? Moderate Information not available 09/13/2015 How Much Tobacco Do You Chew? None Information not available 09/13/2015 What Type Of Diet Are You Following? REGULAR Information not available 09/13/2015 Education 12 Information no t available 09/13/2015 How Many Days In The Past Year Have You Had A Heavy Drinking Consumption (4+ Female, 5+ Male)? 0 Information not available 01/01/2013 Are There Any Guns Present In Your Home? No Information not available 09/13/2015 Live Alone Or With Others? With Others Son-16-- And Boyfriend [email or web address] Information not available 02/26/2013 Patient Has Health Care Proxy Signed And In Chart No Mother- Crystal Butterfield [email or web address] Information not available 07/11/2018 Marital Status Single [email or web address] Informatio n not available 02/26/2013 Mosquito Repellent Used Routinely Yes Information not available 09/13/2015 How Many Children Do You Have? 1 [email or web address] Information not available 02/26/2013 Seat Belts Used Routinely Yes Information not available 09/13/2015 Smoke Alarm In Home No Information not available 09/13/2015 General Stress Level High Information not available 09/13/2015 Do You Use Sunscreen Routinely? Yes Information not available 09/13/2015 Sex: Unknown Functional Status None recorded. Mental Status None recorded. Family History Relationship Description Onset Age of this Age Resolved Age Notes LastModified by Organization Details LastModified Time Mother Hypercholest erolemia [email or web address] Not available 2015 11:53:17 Father Alcoholism [email or web address] Not availabl e 09/13/2015 11:53:17 Father Disease of liver [email or web address] Not available 2015 11:53:17 Maternal Grandmother Diabetes mellitus [email or web address] Not available 2015 11:53:17 Notes:One brother and one si ster: healthy strong family hx of anxiety and depression Medical History No medical history recorded. Gynecological History Statement/Question Response Current Control Method None Date of LMP 05/20/2014 Obstetrics History GPAL:G 0 P 0 0 0 0 Immunizations Vaccine Type Date Status Note Provider Nam e and Address Organization Details Recorded Time Influenza, split virus, quadrivalent, PF 08/31/2015 completed Aixa Wilhelm RN [facility], [facility] 09/13/2015 05:43:23 Past Encounters Encounter ID Performer Location Encounter Start Date Encounter Closed Date Diagnosis/Indication Diagnosis SNOMED-CT Code Diagnosis ICD10 Code Diagnosis Note [id number] ASHWINI [facility], OFFICE [address] [place] [address] 05/24/2000 15:30:00 07/28/2008 02:02:29 [id number] ASHWINI [facility], OFFICE [address] [place] [address] 05/27/2000 10:00:00 07/28/2008 02:02:29 [id number] ASHWINI [facility], OFFICE [address] [place] [address] 05/28/2000 09:30:00 07/28/2008 02:02:29 [id number] ASHWINI [facility], OFFICE [address] [place] [address] [place] [address] 07/29/2006 12:26:13 07/29/2006 14:40:16 [id number] ASHWINI [facility], OFFICE [address] [place] [address] [place] [address] 08/20/2006 14:24:33 08/21/2006 08:42:07 [id number] ASHWINI [facility], OFFICE [address] [place] [address] 12/11/2006 10:31:02 12/11/2006 15:38:36 [id number] [facility] [address] [place] [id number] 12/11/2006 10:58:47 12/11/2006 10:58:55 [id number] ASHWINI [facility], OFFICE [address] [place] [address] 01/14/2007 11:45:37 01/14/2007 13:40:37 [id number] JAIDEN MARADIAGA [address] [place] [address] 04/22/2007 09:54:51 04/24/2007 12:23:05 [id number] [facility] [address] [place] [address] 04/22/2007 10:41:12 04/22/2007 10:41:[id number] [place] [address] 09/22/2007 15:03:27 07/28/2008 02:02:[id number] [place] [address] 09/29/2007 16:07:30 07/28/2008 02:02:29 [id number] [facility] [address] [place] [address] 09/30/2007 09:44:35 09/30/2007 09:44:[id number] [place] [address] 09/15/2009 11:22:24 09/15/2009 14:37:[id number] [place] [address] 02/07/2010 16:29:45 02/07/2010 17:21:17 [id number] [place] [address] [place] [address] 04/12/2011 10:34:32 04/12/2011 10:54:[id number] [place] [address] 05/04/2011 15:33:57 05/07/2011 14:31:30 [id number] SIOMARA Tejeda, [facility], [address] [place] [address] 07/20/2011 12:25:52 07/20/2011 13:03:30 [id number] Lauren Can LPN [address] [place] [address] 01/01/2013 10:43:57 01/01/2013 11:20:18 [id number] MD ASHWINI Xiong [address] [place] [address] 02/26/2013 09:30:50 02/26/2013 10:23:53 Adult health examination 983691542 Counseling 666973482 Tobacco user 002039978 E ncouraged smoking cessationa nd discussed associated health risks of being a smoker. If she decides she needs help with cessation, she can come in for support and/or medication . Administra tion of diphtheria, pertussis, and tetanus vaccine 054330462 Screening for malignant neoplasm of cervix 657608085 [id number] [facility], OFFICE [address] [place] [address] 04/27/2014 10:56:00 04/28/2014 08:10:41 Backache 914869491 improving but continues in PT/chiropr actic care. [id number] Tonja Nini [facility], OFFICE [address] [place] [address] 06/25/2014 09:34:59 06/25/2014 10:21:50 Adult health examination 452498246 UP TO DATE WITH PAP VITAMIN D SUPPLEMENT ENCOURAGED HAD HER FLU SHOT PREVIOUSLY Eruption [id number] Encou raged daily loratadine use. Emollient- unscented. Unscented soaps, detergents and creams. Avoid dryer sheets. Sjhe uses otc steroid cream. Will have her see derm [id number] Radha Weeks PA-C , [facility], OFFICE [address] [place] [address] 08/31/2015 11:17:17 08/31/2015 11:45:25 Acute upper respiratory infection 29025402 J06.9 Educated patient that URI is a viral illness of the upper airways. It is not bacterial and does not benefit from antibiotic s. Average duration of URI is 7-10 days but in a recent trial, treatment at 7-10 days of illness with antibiotic s, intranasal steroids, or placebo did not alter natural history at 3 weeks. Recommende d symptomati c treatments including NSAIDS, semi-uprig ht sleep position, antihistam rock at HS, limited course of nasal sympathomi metics and/or cough syrups, and nasal saline rinses with soft squeeze bottle or Neti pot. Return for fevers > 101 for 3 days, worsening sinus pain, or failure to resolve in 2-4 weeks. Diarrhea 56484297 R19.7 clear liquids, bland diet. avoid dairy and acidic foods. [id number] Lisbeth Burch , [facility], OFFICE [address] [place] [address] 09/13/2015 10:56:22 09/13/2015 12:16:15 Tobacco user 202523572 Z72.0 8 mins spent on smoking cessation counseling Adult heal th examination 762397956 Z00.00 HAD HER FLU SHOT PREVIOUSLY pap due later this year. [id number] Chio White , [facility], OFFICE [address] [place] [address] 10/07/2015 13:09:34 10/07/2015 14:10:19 Acute upper respiratory infection 50453197 J06.9 [id number] Radha Weeks PA-C , [facility], OFFICE [address] [place] [address] 01/05/2016 16:46:35 01/10/2016 15:19:39 Tobacco user 842963754 Z72.0 Urinary tr act infectious disease 73331932 N39.0 Patient instructed to push fluids, to follow up for persistent or worsening symptoms or fever or back pain. Cigarette smoker [id number] F17.210 Screening for malignant neoplasm of cervix [id number] Z12.4 Gynecologi c examination [id number] Z01.687 [id number] Radha Weeks PA-C , [facility], OFFICE [address] [place] [address] 03/02/2016 11:04:02 03/09/2016 09:39:25 Strain of back muscle [id number] S39.012A gentle heat followed by stretching . return to work attempt for Saturday. refer to PT Strain of neck muscle 36 [id number] S16.1XXA Strain of thoracic region [id number] S29.019A [id number] Bobo Calles MD , [facility], OFFICE [address] [place] [address] 05/25/2016 17:17:54 05/28/2016 13:34:45 Cigarette smoker [id number] F17.210 declined meds Tobacco user [id number] Z 72.0 Administra tive reason for encounter [id number] Z02.9 rtw note mar 06 signed and handed to pt. Health Concerns Section Related Observation LastModified by Organization Detai ls LastModified Time None Recorded Concern Status LastModified by Organization Details LastModified Time None Recorded Advance Directives Directive None Recorded Payers Encounter Date Sequence Insurance Name Policy Number Policy Low Covered Member ID Low Member ID Guarantor Name 09/13/2015 1 [facility] HEALTH NET PLAN (MEDICAID HMO) [id number] Cynthia Telles [id number] Cynthiachey Telles 10/07/2015 1 [facility] HEALTH COMMUNITY HEALTH PLAN (MEDICAID HMO) [id number] Cynthia Elfego [id number] Cynthiacheri Telles 01/05/2016 1 [facility] [employer] COMM[employer] HE[employer] PLAN (MEDICAID HMO) [id number] Cynthia Elfego [id number] Cynthia Elfego 03/02/2016 1 [facility] [employer] COMMUNITY HEALTH PLAN (MEDICAID HMO) [id number] Cynthiachey Telles [id number] Cynthiacheri Telles 05/25/2016 1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
--- OUTSIDE RECORDS SUMMARY | 2024-09-13 00:40 | XMS_ITS | Encounter Summary ---
Author Organization [employer] Address [address] [place] [address] 7 [place] [address] Care Team Providers Care Landscape Architect Name Role Phone Maliha Bashir MD Primary Care Provider [phone] Reason for Visit * Reason Comments Routine Cleaning Dental Exam Encounter Details Date Type Department Care Team ([facility] Contact Info) Description 09/07/2024 3:00 PM EST Office Visit [facility] ADULT DENTAL [address] [place] [address] Rachel Villalta Periodontal disease (Primary Dx); Dental caries Social History Tobacco Use Types [...] with others, in a hotel, in a alf, living outside on the street, on a [...] AM EDT documented as of this encounter Last Filed Vital Signs Vital Sign Reading Time Taken Comments Blood Pressure 118/74 09/07/2024 3:01 PM EST Pulse - - Temperature - - Respiratory Rate - - Oxygen Saturation - - Inhaled Oxygen Concentration - - Weight - - Height - - Body Mass Index - - documented in this encounter Progress Notes * Rachel Villalta - 09/07/2024 3:00 PM EST Patient ID: Cynthia Telles is a 49 y.o. female. Time Out: Timeout Date: 09/07/24, Timeout Time: 1502 Location: [facility] Tooth: Maxilla and Mandible Procedure: Exam and Prophylaxis Verified the above with patient, fleet administrative assistant, and provider. Confirmed via patient's chart, intraorally and by radiographs. Structural Welder: not applicable Medical Hx: Vitals: Blood pressure 118/74. Medications, Med Hx reviewed with patient and updated in chart. Treatment Provided Dental procedures in this visit D1110 - PROPHYLAXIS - ADULT (Completed) Service provider: Rachel Middleton provider: Roni Ames DMD D9450 - CASE PRESENTATION, DETAILED AND EXTENSIVE TREATMENT PLANNING (Completed) Service provider: Rachel Middleton provider: Roni Ames DMD D1330 - ORAL HYGIENE INSTRUCTIONS (Completed) Service provider: Rachel Middleton provider: Roni Ames DMD Instruments Used: Ultrasonic Scalers, Hand Scalers, and Prophy angle Fluoride: N/A Oral Cancer Screening: No lesions Head/Neck Exam: No Lesions Calculus: Heavy, Generalized, and Subgingival Plaque: Moderate and Generalized Stain: Moderate and Generalized Bleeding: Moderate and Generalized Gingiva: Bleeding on probing and Erythematous OH: Poor Perio Chart: Not Completed Dental exam done by Dr. Ames. Oral hygiene instructions provided to patient including brushing technique and flossing. Recommendations: Dale two times daily, modified tam technique, Floss daily, Electric toothbrush, Soft bristle toothbrush, Dale Tongue, Anti-sensitivity toothpaste Recall Frequency: 6 mo NV: SRP UR LR Hygienist: Rachel Villalta RDH * Roni Ames DMD - 09/07/2024 3:00 PM EST Dental procedures in this visit D1110 - PROPHYLAXIS - ADULT (Completed) Service provider: Rachel Villalta Billing provider: Roni Ames DMD D9450 - CASE PRESENTATION, DETAILED AND EXTENSIVE TREATMENT PLANNING (Completed) Service provider: Rachel Villalta Billing provider: Roni Ames DMD D1330 - ORAL HYGIENE INSTRUCTIONS (Completed) Service provider: Rachel Villalta Billing provider: Roni Ames DMD D0120 - PERIODIC ORAL EVALUATION - ESTABLISHED PATIENT (Completed) Service provider: Roni Ames DMD Billing provider: Roni Ames DMD Patient ID: Cynthia Telles is a 49 y.o. female. Time Out: Timeout Date: 09/07/24, Timeout Time: 1502 Location: [facility] Tooth: all Procedure: Exam Verified the above with patient, fleet administrative assistant, and provider. Confirmed via patient's chart, intraorally and by radiographs. Structural Welder: not applicable Chief Complaint Patient presents with Routine Cleaning Dental Exam Medical Hx: Vitals: Blood pressure 118/74. Past Medical History: Diagnosis Date Anxiety Arthritis Chest pain Depression Medications: Outpatient Encounter Medications as of 09/07/2024 Medication Sig Dispense Refill albuterol (ProAir HFA) 108 (90 Base) MCG/ACT inhaler Inhale 2 puffs every 4-6 hours by inhalation route as needed. ARIPiprazole (Abilify) 5 MG tablet TAKE 1 TABLET BY MOUTH EVERY NIGHT AT BEDTIME FOR MOOD, INTRUSIVE THOUGHTS EPINEPHrine (EpiPen 2-Ronal) 0.3 MG/0.3ML injection syringe Inject 0.3 mL into the shoulder, thigh, or buttocks. guanFACINE (Tenex) 1 MG tablet Take 1 tablet by mouth if needed in the morning and at bedtime. propranolol (Inderal) 20 MG tablet TAKE 1 TABLET BY MOUTH THREE TIMES A DAY NEEDED ANXIETY, PANIC temazepam (Restoril) 7.5 MG capsule 1 CAPSULE BY MOUTH EVERY NIGHT AT BEDTIME NEEDED INSOMNIA atorvastatin (Lipitor) 40 MG tablet Take 1 tablet by mouth at bed time. (Patient not taking: Reported on 09/07/2024) cetirizine (ZyrTEC) 10 MG tablet Take 10 mg by mouth 2 times daily. (Patient not taking: Reported on 09/07/2024) DULoxetine (Cymbalta) [address] capsule TAKE 1 CAPSULE BY MOUTH EVERY MORNING FOR DEPRESSION (Patient not taking: Reported on 09/07/2024) ibuprofen 800 MG tablet Take 1 tablet by mouth every 8 (eight) hours. (Patient not taking: Reportedon 09/07/2024) No facility-administered encounter medications on file as of 09/07/2024. Objective HPI: pt notes discomfort in UL - states she is bruxing and is having pain chewing on L side Soft Tissue Exam No findings documented this visit Head and Neck Exam: all structures examined Details: no swellings, ulcerations or lymphadenopathies OCS: negative Dental Exam Missing #1,16,17,32 Pt presents with generalized chronic periodontitis - note multiple areas of vertical bone loss #9 - hx of RCT, advise mahin #12-DO decay #14-DO decay #18-O decay #31- OB decay Informed pt of findings and treatment options and recommendations. Discussed possibility for further treatment of #14 like RCT or EXT depending on extent of decay and whether symptoms resolve or not.Pt understood Radiographic Interpretation: Associated radiographs for today's visit were reviewed and finding(s) were discussed with the patient. Findings include: see above Hard Tissue Exam: Decay noted - see charting and treatment plan Perio Dx: Generalized Chronic Periodontitis Stage: I Grade: B Reference tooth chart for additional findings. Oral Cancer Risk: Moderate Risk Oral Hygiene Instructions: Dale two times daily, modified tam technique, Floss daily, Electric toothbrush, Soft bristle toothbrush, Dale Tongue, Anti- sensitivity toothpaste, Prevident Caries Risk Assessment: High- two or more risk factors Assessment/Plan SRPs Restos Maintenance and recare Patient tolerated procedure well, all questions answered and expressed understanding. Dismissed in good condition. NV: #12,14 restos Loin Trimmer: Rachel Villalta Dentist: Roni Ames DMD documented in this encounter Miscellaneous Notes * Addendum Note - Roni Ames DMD - 09/07/2024 3:00 PM ESTAddended by: RONI AMES on: 09/07/2024 04:39 PM Modules accepted: Orders documented in this encounter Plan of Treatment Upcoming Encounters Date Type Department Care Team (Late st Contact Info) Description 10/07/2024 2:00 PM EDT Office Visit [facility] ADULT DENTAL [address] [place] [address] Rachel Villalta Scheduled Orders Name Type Priority Associated Diagnoses Orde r Schedule 12 DO 12 DO RESIN-BASED COMPOSITE - 2 SURF, POSTERIOR Dental Routine [address] arting 09/07/2024 14 DO 14 DO RESIN-BASED COMPOSITE - 2 SURF, POSTERIOR Dental Routine [address] arting 09/07/2024 18 O 18 O RESIN-BASED COMPOSITE - 1 SURF, POSTERIOR Dental Routine [address] arting 09/07/2024 31 AMY 31 AMY RESIN-BASED COMPOSITE - 2 SURF, POSTERIOR Dental Routine [address] arting 09/07/2024 8 L 8 L RESIN-BASED COMPOSITE - 1 SURF, ANTERIOR Dental Routine [address] arting 09/07/2024 documented as of this encounter Procedures Procedure Name Priority Date/Time Associated Diagnosis Comments PROPHYLAXIS - ADULT Routine 09/07/2024 3 :00 PM EST Periodontal disease Dental caries PERIODIC ORAL EVALUATION - ESTABLISHED PATIENT Routine 09/07/2024 3:00 PM EST Periodontal disease Dental caries ORAL HYGIENE INSTRUCTIONS Routine 09/07/2024 3:00 PM EST Periodontal disease Dental caries CASE PRESENTATION, DETAILED AND EXTENSIVE TREATMENT PLANNING Routine 09/07/2024 3:00 PM EST Periodontal disease Dental caries documented in this encounter Visit Diagnoses Diagnosis Periodontal disease- Primary Unspecified gingival and periodontal disease Dental caries Unspecified dental caries documented in this encounter Additional Health Concerns Assessment Noted Time PHQ-9 Depression Total Score: 21 022 1:20 PM EST documented as of this encounter Care Teams Landscape Architect Relationship Specialty Start Date End Date Maliha Bashir MD [address] [place] [address] PCP - General Family Medicine 03/08/21 documented as of this encounter
--- OUTSIDE RECORDS SUMMARY | 2024-09-13 00:40 | XMS_ITS | Encounter Summary ---
Author Organization [employer] [facility] Address [address] [place] [address] 7 [place] [address] Care Team Providers Care Soaker Meat Name Role Phone Maliha Bashir MD Primary Care Provider [phone] Encounter Details Date Type Department Care Team (Late Contact Info) Description 02/11/2023 Telephone [facility] [address] [place], [place] [phone] Maliha Bashir MD [address] [place] [address] Social History Tobacco Use Types Packs/Day Years Used Date Smoking Tobacco: Every Day Cigarettes Passive Smoke Exposure: Never Smokeless Tobacco: Never Alcohol Use Standard Drinks/Week Comments Never 0 (1 standard drink = 0.6 oz pur e alcohol) Depression Answer Date Recorded Patient Health Questionnaire-9 Score 21 06/12/2022 Depression Answer Date Recorded Patient Health Questionnaire-2 Score 6 10/08/2022 Comments Unknown Sex and Gender Information Value Date Recorded Sex Assigned at Female 05/07/2022 10:37 AM EDT Legal Sex Female 10:37 AM EDT Gender Identity Female 05/07/2022 10:37 AM EDT Sexual Orientation Straight 05/07/2022 10 :37 AM EDT documented as of this encounter Plan of Treatment Upcoming Encounters Date Type Department Care Team ([facility] Contact Info) Description 10/07/2024 2:00 PM EDT Office Visit [facility] ADULT DENTAL [address] [place] [address] Rachel Villalta documented as of this encounter Visit Diagnoses Not on filedocumented in this encounter Additional Health Concerns Assessment Noted Time PHQ-9 Depression Total Score: 21 022 1:20 PM EST documented as of this encounter Care Teams Soaker Meat Relationship Specialty Start Date End Date Maliha Bashir MD [address] [place] [address] PCP - General Family Medicine 03/08/21 documented as of this encounter
--- OUTSIDE RECORDS SUMMARY | 2024-09-13 00:40 | XMS_ITS | Clinical Summary ---
Author Organization [employer] Address [address] [place] [address] [address] [place] [address] Care Team Providers Care Volcanology Teacher Name Role Phone Maliha Bashir MD Primary Care Provider [phone] Allergies Active Allergy Reactions Criticality Noted Date Comments Clindamycin Rash Low 05/07/2022 Other reaction(s): Hives / Skin Rash Clindamycin Hcl Hives Low 06/05/2022 Hydroxyzine Hives Low 06/05/2022 Penicillins Anaphylaxis High 03/25/2020 Medications atorvastatin (Lipitor) 40 MG tablet Take 1 tablet by mouth at bed time. 04/19/20 22 Active EPINEPHrine (EpiPen 2-Ronal) 0.3 MG/0.3ML injection syringe Inject 0.3 mL into the shoulder, thigh, or buttocks. Active ibuprofen 800 MG tablet Take 1 tablet by mouth every 8 (eight) hours. 04/30/20 22 Active cetirizine (ZyrTEC) 10 MG tablet Take 10 mg by mouth 2 times daily. 04/02/20 22 Active temazepam (Restoril) 7.5 MG capsule 1 CAPSULE BY MOUTH EVERY NIGHT AT BEDTIME NEEDED INSOMNIA 04/03/20 24 Active guanFACINE (Tenex) 1 MG tablet Take 1 tablet by mouth if needed in the morning and at bedtime. 04/03/20 24 Active DULoxetine (Cymbalta) [address] capsule TAKE 1 CAPSULE BY MOUTH EVERY MORNING FOR DEPRESSION 04/03/20 24 Active albuterol (ProAir HFA) 108 (90 Base) MCG/ACT inhaler Inhale 2 puffs every 4-6 hours by inhalation route as needed. 01/02/20 13 Active ARIPiprazole (Abilify) 5 MG tablet TAKE 1 TABLET BY MOUTH EVERY NIGHT AT BEDTIME FOR MOOD, INTRUSIVE THOUGHTS 08/11/19 25 Active propranolol (Inderal) 20 MG tablet TAKE 1 TABLET BY MOUTH THREE TIMES A DAY NEEDED ANXIETY, PANIC 08/11/19 25 Active Sodium Fluoride (Sodium Fluoride 5000 Plus) 1.1 % creamIndicatio ns:Dental caries [place] teeth for 2 minutes, morning and night. Spit, do not rinse. Do not eat or drink anything for 30 minutes following use. 51 g 3 09/09/19 25 Active Sodium Fluoride 1.1 % creamIndicatio ns:Dental caries [place] teeth for 2 minutes, morning and night. Spit, do not rinse. Do not eat or drink anything for 30 minutes following use. 112 g 3 09/08/19 25 025 Discontinued Active Problems Problem Noted Date Diagnosed Date Rhinosinusitis 04/23/2024 Assessment & Plan (04/24/2024 12:00 AM EDT): Patient with sinus pressure and tenderness on examination, timing still not long enough for anitbiotics but given congested left TM and redness will treat with antibiotic and recommended supportive care. Rapid testing negative. RTC PRN Left otitis media 04/23/2024 Dental calculus 03/18/2024 Food insecurity 10/08/2022 Assessment & Plan (10/08/2022 3:07 PM EDT): Referring urgently to [facility] Care Management. Lumbar disc herniation 09/14/2022 PTSD (post-traumatic stress disorder) 06/12/2022 Assessment & Plan (10/08/2022 4:58 PM EDT): It is unclear to me patients diagnosis and reason for neuropsych testing, crisis liaison was not able to explain and unfortunately I don't have records of her psych diagnosis. Patient reports she will need a list of her psychiatric issues, I did provide a problem list to her last visit, when I asked her exactly what she needed, she said she didn't need anything and walked away. It is very confusing of how to best support this patient. Recommended to call 911 or visit closes ED. Assessment & Plan (10/08/2022 3:06 PM EDT): Pt is extremely anxious and depressed, with psychotic features including racing thoughts and SI without intent currently. She has a Psychiatrist through [facility] and I explained that she needs to continue with that provider for psychiatric medication management. Urged to call their office if having problems with medications. Assessment & Plan (09/26/2022 9:56 PM EDT): Strongly recommended patient to discussed with her psych prescriber as I am not managing her behavioral medications. Assessment & Plan (06/12/2022 2:24 PM EST): Pt is still extremely depressed, although psychotic features somewhat improved. Suggest contacting therapist and seeing if her visits can be more often for a while. Discussed coping strategies: Pt likes music, and watching [employer] movies with happy endings. Encouraged to utilize. Avoid being home alone. Reviewed 8 hotline and encouraged to call as needed. She thinks the Seroquel is making her feel sadder. Will stop the am dose and decrease again to Seroquel 150 mg at bedtime. Start Depakote ER 500 mg once daily. Although she doesn't like needles, would be willing to have occasional blood tests for monitoring. F/U with me in 2-3 weeks. She agrees with the plan. Hyperlipidemia 10/03/2021 Constipation 02/09/2019 Marijuana use 02/09/2019 Obesity (BMI 30.0-34.9) 02/09/2019 Alopecia areata 02/19/2018 Tobacco use disorder 01/29/2018 Encounters Date Type Department Care Team Description 09/07/2024 3:00 PM EST Office Visit [facility] [address] [place] [address] Rachel Villalta Periodontal disease (Primary Dx); Dental caries 09/07/2024 Refill [facility] [address] [place] [address] Justin Ching DMD Dental caries from Last 3 Months Immunizations Name Administration Dates Next Due Influenza injectable quadrivalent preservative f ree 08/31/2015 Adán SARS-CoV-2 Vaccination 10/15/2020 PPD Test 01/20/2019 Pneumococcal Polysaccharide PPSV23 04/07/2011 Tdap 04/07/2011 Social History Tobacco Use Types Packs/Day Years Used Date Smoking Tobacco: Every Day Cigarettes Passive Smoke Exposure: Never Smokeless Tobacco: Never Tobacco Cessation:Ready to Q uit: Not Asked; Counseling Given: Not Answered Alcohol Use Standard Drinks/Week Comments Never 0 (1 standard drink = 0.6 oz pur e alcohol) Depression Answer Date Recorded Patient Health Questionnaire-9 Score 21 06/12/2022 Housing Stability Answer Date Recorded What is your housing situation today? I do not have housing (Staying with others, in a hotel, in a [place] [facility] [place], living outside on the street, on a [...] Orientation Straight 05/07/2022 10 :37 AM EDT Last Filed Vital Signs Vital Sign Reading Time Taken Comments Blood Pressure 118/74 09/07/2024 3:01 PM EST Pulse 90 04/23/2024 3:11 PM EDT Temperature 37.1 ??C (98.8 ??F) 04/23/2024 3:11 PM ED T Respiratory Rate 20 04/23/2024 3:11 PM EDT Oxygen Saturation 98% 04/23/2024 3:11 PM EDT Inhaled Oxygen Concentration - - Weight 73.6 kg (162 lb 3.2 oz) 04/23/2024 3:11 P M EDT Height 157.5 cm (5' 2 ) 04/23/2024 3:11 PM EDT Body Mass Index 29.67 04/23/2024 3:11 PM EDT Plan of Treatment Upcoming Encounters Date Type Department Care Team (Late st Contact Info) Description 10/07/2024 2:00 PM EDT Office Visit [facility] [address] [place] [address] Rachel Villalta Health Maintenance Due Date Last Done Comments CT Colonography 1977 Colonoscopy 1977 Colorectal Cancer Screening 1977 FIT DNA/Cologuard 1977 FIT 1977 FOBT 1977 Sigmoidoscopy 1977 Alcohol/Substance Use Screening 1989 Family Planning (PISQ) 01/04/1992 Hepatitis B Vaccines (1 of 3 - 19+ 3-dose series) 01/04/1996 Pap Smear 1998 Cervical Cancer Screening 2007 HPV/Cotest 2007 Pneumococcal Vaccine: Pediatrics (0 to 5 Years) and At-Risk Patients (6 to 49) Years) (2 of 2 - PCV) 04/07/2012 04/07/2011 Mammogram 2017 DTaP/Tdap/Td Vaccines (2 - Td or Tdap) 04/07/2021 04/07/2011 Depression Monitoring (PHQ-9) 04/09/2023 10/08/2022, 06/12/2022 SDOH Screening 06/12/2023 06/12/2022 Depression Screening 10/09/2023 10/08/2022, 06/12/20 COVID-19 Vaccine ( - season) 2024 10/15/2020 Influenza Vaccine (#1) 2024 08/31/2015 Dental X-Ray: Bitewings 02/11/2025 02/11/20 24, 04/30/2022, 06/29/2021 Dental Oral Exam 03/11/2025 09/07/2024, 02/11/2024 Dental Prophylaxis 03/11/2025 09/07/2024, 0 02/20/2024, 05/16/2022, Additional history exists Tobacco Screening 09/07/2025 09/07/2024 Lipid Panel 02/16/2026 02/16/2021 Zoster Vaccines (1 of 2) 2027 Dental X-Ray: Full Mouth 02/11/2027 024, 06/29/2021, 03/25/2020 RSV Patients and Patients Aged 60 years or older (1 - 1-dose 75+ series) 01/04/2052 HIV Screening Completed 02/16/2021 Hepatitis C Screening Completed 02/16/2021 HIB Vaccines Aged Out No longer eligi ble based on patient's age to complete this topic HPV Vaccines Aged Out No longer eligi ble based on patient's age to complete this topic Hepatitis A Vaccines Aged Out No long er eligible based on patient's age to complete this topic IPV Vaccines Aged Out No longer eligi ble based on patient's age to complete this topic Meningococcal Vaccine Aged Out No mitch doron eligible based on patient's age to complete this topic RSV under 20 months Aged Out No longe r eligible based on patient's age to complete this topic Rotavirus Vaccines Aged Out No longer eligible based on patient's age to complete this topic Procedures Procedure Name Priority Date/Time Associated Diagnosis Comments PERIODIC ORAL EVALUATION - ESTABLISHED PATIENT Routine 09/07/2024 3:00 PM EST Periodontal disease Dental caries ORAL HYGIENE INSTRUCTIONS Routine 09/07/2024 3:00 PM EST Periodontal disease Dental caries CASE PRESENTATION, DETAILED AND EXTENSIVE TREATMENT PLANNING Routine 09/07/2024 3:00 PM EST Periodontal disease Dental caries PROPHYLAXIS - ADULT Routine 09/07/2024 3 :00 PM EST Periodontal disease Dental caries INTRAORAL - COMPLETE SERIES OF RADIOGRAPHIC IMAGES Routine 02/11/2024 9:00 AM EDT ZZZ HISTORICAL HEPATITIS C AB W/REFL TO HCV RNA, QN, PCR Routine 02/16/2021 8:55 AM EDT HIV 1/2 ANTIGEN/ANTIBODY, FOURTH GENERATION W/RFL Routine 02/16/2021 8:55 AM EDT LIPID PANEL, STANDARD Routine 02/16/2021 8:55 AM EDT from Last 3 Months or Most Recently Relevant to Health Maintenance Results * HEPATITIS C AB W/REFL TO HCV RNA, QN, PCR (02/16/2021 8:55 AM EDT) HEPATITIS C ANTIBODY NON-REACT RUSLAN NON-REACT RUSLAN [facility] INDEX 0.02 <1.00 [facility] Comment: ?? HCV antibody was non-reactive. There is no laboratory ?? evidence of HCV infection. ?? In most cases, no further action is required. However, if recent HCV exposure is suspected, a test for HCV RNA (test code 51788) is suggested. ?? For additional information please refer to http://Help Remedies.SOLEM [employer]ique/faq/BYH56z5 (This link is being provided for informational/ educational purposes only.) ?? 02/16/2021 8:55 AM EDT us Maliha Bashir MD HISTORICAL/NON ORDERABLE LABS Final Result [facility] [address] * HIV 1/2 ANTIGEN/ANTIBODY,FOURTH GENERATION W/RFL (02/16/2021 8:55 AM EDT) HIV-1/2 ANTIGEN AND ANTIBODIES, 4TH GENERATION W/ REFLEX NON-REACT RUSLAN NON-REACT RUSLAN [facility] Comment: HIV-1 antigen and HIV-1/HIV-2 antibodies were not detected. There is no laboratory evidence of HIV infection. ?? PLEASE NOTE: This information has been disclosed to you from records whose confidentiality may be protected by state law. ??If your state requires such protection, then the state law prohibits you from making any further disclosure of the information without the specific written consent of the person to whom it pertains, or as otherwise permitted by law. A general authorization for the release of medical or other information is NOT sufficient for this purpose. ? For additional information please refer to http://Help Remedies.SO[employer]M [employer]ique/faq/ZJO759 (This link is being provided for informational/ educational purposes only.) ? The performance of this assay has not been clinically validated in patients less than 2 years old. ?? 02/16/2021 8:55 AM EDT us Maliha Bashir MD LAB BLOOD ORDERABLES Final Re sult Performing Organization Address [facility] de Phone Number [facility] [address] * (ABNORMAL) LIPID PANEL, STANDARD (02/16/2021 8:55 AM EDT) Chol/HDLC Ratio 6.1(H) <5.0 (calc) [facility] Cholesterol, Total 214(H) <200 mg/dL [facility] HDL Cholesterol 35(L) > OR = 50 mg/dL [facility] LDL Cholesterol 159(H) mg/dL (calc) [facility] Comment: Reference range: <100 ?? Desirable range <100 mg/dL for primary prevention; ?? <70 mg/dL for patients with CHD or diabetic patients ?? with > or = 2 CHD risk factors. ?? LDL-C is now calculated using the Benton ?? calculation, which is a validated novel method providing ?? better accuracy than the Friedewald equation in the ?? estimation of LDL-C. ?? Warren MUÑIZ et al. CONSTANCE. 2013;310(19): 5954-5973 ?? (http://education.[employer].42Floors/faq/IUC497) Non-HDL Cholesterol 179(H) <130 mg/dL (calc) [facility] Comment: For patients with diabetes plus 1 major ASCVD risk ?? factor, treating to a non-HDL-C goal of <100 mg/dL ?? (LDL-C of <70 mg/dL) is considered a therapeutic ?? option. Triglycerides 93 <150 mg/dL [facility] 02/16/2021 8:55 AM EDT us Maliha Bashir MD LAB BLOOD ORDERABLES Final Re sult Performing Organization Address [facility] Phone Number [facility] [address] from Last 3 Months or Most Recently Relevant to Health Maintenance Insurance [facility] C3 HSN FULL DENTAL-[facility] MEDICAID STAND ADULT Care Teams Volcanology Teacher Relationship Specialty Start Date End Date Maliha Bashir MD [address] [place] [id number] PCP - General Family Medicine 03/08/21
== END 2024-09-13 00:42 | disposition left against medical advice (07) ==
PROVIDERS: Emergency Provider Emergency Medicine; PCP Family Medicine
DX: K13.79 Other lesions of oral mucosa (principal)
CPT/HCPCS: 99281

== ENCOUNTER 2025-04-01 17:27 | Emergency (ER) | payer MEDICAID, SELFPAY ==
--- NOTE | ~2025-04-01 | XR_ITS ---
CLINICAL HISTORY: CP 2 view chest x-ray. Comparison: CR/SR - XR CHEST 2 VIEWS - 03/12/23 21:52 EDT Findings: The lungs are adequately expanded. Minimal interstitial prominence, similar to prior. No focal consolidation. No effusion or pneumothorax. Cardiac and mediastinal contours are within normal limits. No acute osseous abnormality Impression: Minimal interstitial prominence, similar to prior. No focal consolidation or overt edema. This document has been electronically signed by: Huseyin Mandel MD on 04/01/2025 20:14:24
--- NOTE | 2025-04-01 17:37 | ECG_ITS ---
Test Reason : cp Blood Pressure : */* mmHG Vent. Rate : 76 BPM Atrial Rate : 76 BPM P-R Int : 158 ms QRS Dur : 94 ms QT Int : 386 ms P-R-T Axes : 59 17 28 degrees QTcB Int : 434 ms Normal sinus rhythm Incomplete right bundle branch block Borderline ECG When compared with ECG of 12-Mar-2023 21:21, No significant change was found Referred By: Lianet Sandoval Electronically Signed By: Tyree Ceballos
[2025-04-01 18:10] VITALS: BP 130/63; PULSE 80; RESP 18; TEMP 36.4; O2SAT 98; BMI 30.7
--- NOTE | 2025-04-01 18:12 | ED.URI ---
HPI - URI/Sore Throat General Chief Complaint: Upper Respiratory Symptoms Stated Complaint: sinus pressure, ear ache, CP, arm numbness Time Seen by Provider: 04/01/25 20:39 Related Data Home Medications ?Medication ?Instructions ?Recorded ?Confirmed atorvastatin 40 mg tablet 40 mg PO DAILY 06/27/22 bupropion HCl 150 mg tablet,12 hr 150 mg PO DAILY 06/27/22 sustained-release divalproex 500 mg tablet,extended 500 mg PO QAM 06/27/22 release 24 hr doxepin 25 mg capsule 25 mg PO BEDTIME 06/27/22 loratadine 10 mg tablet 10 mg PO BID 06/27/22 quetiapine 50 mg tablet,extended 100 mg PO BEDTIME 06/27/22 release 24 hr Allergies Allergy/AdvReac Type Severity Reaction Status Date / Time Penicillins (PENICILLINS) Allergy Severe ANAPHYLAXIS Verified 04/01/25 18:13 [facility] Past Medical History Medical History Anxiety Asthma Bipolar disorder Depression Family History Family History Mother Heart disease HTN (hypertension) Hyperlipidemia Father Prostate cancer Social History Social History Household Members Other:: son Housing: House Alcohol intake: never Patient Tobacco Use Status: Current everyday Tobacco user Cigarettes Per Day: 10 Years Smoked: 30 Substance Use Type: Marijuana Advance Directives: No Advance Directives Information Provided: No Do you have a plan to hurt others: No Plan service: No Current occupational status: employed 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 RME assessment and note performed by: Lianet Sandoval PA-C This is a [id number] who presents to the ER with complaints of sinus pressure, ear pain, right arm numbness x 1 week. Reports CP with cough. Plan: Labs, CXR, EKG Medical Decision Making Medical Decision Making MDM Narrative: 8:45 PM 04/01/2025 (Elmer LING): Just after this provider signed up for the patient, this provider was informed by RN that the patient left the ED without treatment complete. This provider had no patient contact. Patient's chart was reviewed and shows no leukocytosis, anemia, electrolyte abnormality, or YAYA. Patient's LFTs are unremarkable. EKG is nonischemic, shows sinus rhythm with incomplete right bundle-branch block, no tachycardia or bradycardia, no significant morphology change compared to 03/12/2023. Troponin is negative. COVID and influenza swabs are negative. Chest x-ray shows no focal consolidation. There was no indication for emergent callback at this time. Lab Data 04/01/25 18:45 04/01/25 18:45 Labs: Lab Results 04/01/25 Range/Units 18:45 WBC 9.4 (4.8-10.8) X10*3/uL RBC 4.61 (4.20-5.50) X10*6/uL Hgb 13.6 (12.0-16.0) g/dl Hct 38.7 (37.0-47.0) % MCV 83.9 (80.0-98.0) fL MCH 29.5 (27.0-33.0) pg MCHC 35.1 H (31.0-35.0) g/dl RDW 12.3 (11.0-16.0) % Plt Count 279 (160-400) X10*3/uL MPV 9.8 (9.4-12.3) fL Immature Gran % (Auto) 0.3 (0.0-0.4) % Neut % (Auto) 59.3 (45-73) % Lymph % (Auto) 31.6 (20-40) % [place] % (Auto) 6.3 (2-11) % Eos % (Auto) 2.3 (0-4) % Baso % (Auto) 0.2 (0-2) % Lymph # (Auto) 3.0 (1.2-4.9) X10*3/uL [place] # (Auto) 0.6 (0.1-1.2) X10*3/uL Eos # (Auto) 0.2 (0.0-0.4) X10*3/uL Baso # (Auto) 0.0 (0.0-0.2) X10*3/uL Abs Immat Gran (auto) 0.03 (0.00-0.03) X10*3/uL Absolute Neuts (auto) 5.6 (2.0-8.3) x10*3/uL Absolute Nucleated RBC 0.000 (0.0-0.012) X10*3/uL Nucleated RBC % (auto) 0.0 (0.0-0.2) /100WBC Sodium 140 (135-145) mmol/L Potassium 3.5 (3.3-5.1) mmol/L Chloride 108 (96-108) mmol/L Carbon Dioxide 26 (22-29) mmol/L Anion Gap 10 L (12-20) BUN 12 (9-16) mg/dL Creatinine 0.81 (0.5-1.4) mg/dL Estim Creat Clear Calc 81.2 Estimated GFR > 60 Random Glucose 80 (60-115) mg/dL Calcium 9.2 (8.4-10.2) mg/dL Magnesium 2.1 (1.6-2.6) mg/dL Total Bilirubin 0.3 (0.0-1.0) mg/dL Direct Bilirubin 0.1 (0.0-0.5) mg/dL AST 21 (5-31) U/L ALT 12 (0-31) U/L Alkaline Phosphatase 94 (39-117) U/L Troponin I High Sens < 2.7 (<3.5-17.0) ng/L Total Protein 7.2 (6.5-8.0) g/dL Albumin 4.2 (3.5-5.0) g/dL COVID-19 (LEILA) Negative (Negative) COVID-19 Clin Com See Note Influenza Type A (CAMILLA) Negative (Negative) Influenza Type B (CAMILLA) Negative (Negative) Influenza A & B Note See Note Discharge Plan Discharge Clinical Impression: Upper respiratory infection Patient Disposition: Left W/O Completing Treatment Prescriptions: No Action divalproex 500 mg tablet extended release 24 hr 500 mg PO QAM quetiapine 50 mg tablet extended release 24 hr 100 mg PO BEDTIME loratadine 10 mg tablet 10 mg PO BID doxepin 25 mg capsule 25 mg PO BEDTIME bupropion HCl 150 mg tablet sustained-release 12 hr 150 mg PO DAILY atorvastatin 40 mg tablet 40 mg PO DAILY Discharge Date/Time: 04/01/25 20:43
[2025-04-01 18:51] LABS: MANUAL DIFF FLAG NO
[2025-04-01 18:53] LABS: Hematocrit 38.7 % (37.0-47.0); Hemoglobin 13.6 g/dl (12.0-16.0); Imm Gran Abs Auto 0.03 X10*3/uL (0.00-0.03); Imm Gran Pct Auto 0.3 % (0.0-0.4); Lymphocytes Absolute Auto 3.0 X10*3/uL (1.2-4.9); Mean Corpuscular HGB Conc 35.1 g/dl (31.0-35.0); Mean Corpuscular Hemoglobin 29.5 pg (27.0-33.0); Mean Corpuscular Volume 83.9 fL (80.0-98.0); NRBC Abs Auto 0.000 X10*3/uL (0.0-0.012); NRBC Pct Auto 0.0 /100WBC (0.0-0.2); Platelet Count 279 X10*3/uL (160-400); Red Blood Count 4.61 X10*6/uL (4.20-5.50); White Blood Count 9.4 X10*3/uL (4.8-10.8)
[2025-04-01 19:07] LABS: COVID-19 Test Negative (Negative); IDNOW Serial# 08D9AD1C
[2025-04-01 19:08] LABS: IDNOW Serial# 58CA691E; Influenza B2 Negative (Negative)
[2025-04-01 19:09] LABS: Alanine Aminotransferase 12 U/L (0-31); Albumin Level 4.2 g/dL (3.5-5.0); Alkaline Phosphatase 94 U/L (39-117); Anion Gap 10 (12-20); Aspartate Amino Transferase 21 U/L (5-31); Blood Urea Nitrogen 12 mg/dL (9-16); Calcium 9.2 mg/dL (8.4-10.2); Carbon Dioxide 26 mmol/L (22-29); Chloride 108 mmol/L (96-108); Creatinine Clr Calc Pharmacy 81.2; Estimated Glomerular Filt Rate > 60; Magnesium 2.1 mg/dL (1.6-2.6); Potassium 3.5 mmol/L (3.3-5.1); Sodium 140 mmol/L (135-145); Total Protein 7.2 g/dL (6.5-8.0)
[2025-04-01 19:17] LABS: Troponin-I High Sensitivity < 2.7 ng/L (<3.5-17.0)
--- OUTSIDE RECORDS SUMMARY | 2025-04-01 20:13 | XMS_ITS | Clinical Summary ---
Author Organization [employer] Address [address] [place] [address] [address] [place] [address] Care Team Providers Care Furnace Repairer Helper Name Role Phone Maliha Bashir MD Primary Care Provider [phone] Allergies Active Allergy Reactions Criticality Noted Date Comments Benzocaine 09/14/2024 Clindamycin Rash Low 05/07/2022 Other reaction(s): Hives / Skin Rash Clindamycin Hcl Hives Low 06/05/2022 Hydroxyzine Hives Low 06/05/2022 Penicillins Anaphylaxis,Unknown High 03/25/2020 Medications atorvastatin (Lipitor) 40 MG tablet Take 1 tablet by mouth at bed time. 2 Active EPINEPHrine (EpiPen 2-Ronal) 0.3 MG/0.3ML injection syringe Inject 0.3 mL into the shoulder, thigh, or buttocks. Active ibuprofen 800 MG tablet Take 1 tablet by mouth every 8 (eight) hours. 2 Active cetirizine (ZyrTEC) 10 MG tablet Take 10 mg by mouth 2 times daily. 2 Active temazepam (Restoril) 7.5 MG capsule 1 CAPSULE BY MOUTH EVERY NIGHT AT BEDTIME NEEDED INSOMNIA 4 Active guanFACINE (Tenex) 1 MG tablet Take 1 tablet by mouth if needed in the morning and at bedtime. 4 Active DULoxetine (Cymbalta) [address] capsule 4 Active albuterol (ProAir HFA) 108 (90 Base) MCG/ACT inhaler Inhale 2 puffs every 4-6 hours by inhalation route as needed. 3 Active ARIPiprazole (Abilify) 5 MG tablet TAKE 1 TABLET BY MOUTH EVERY NIGHT AT BEDTIME FOR MOOD, INTRUSIVE THOUGHTS 5 Active propranolol (Inderal) 20 MG tablet TAKE 1 TABLET BY MOUTH THREE TIMES A DAY NEEDED ANXIETY, PANIC 5 Active Sodium Fluoride (Sodium Fluoride 5000 Plus) 1.1 % creamIndication s:Dental caries [place] teeth for 2 minutes, morning and night. Spit, do not rinse. Do not eat or drink anything for 30 minutes following use. 51 g 3 5 Active buPROPion SR (Wellbutrin SR) 150 MG 12 hr tablet TAKE 1 TAB IN AM X1 WEEK THEN 1 TAB TWICE DAILY (2ND DOSE BEFORE 4PM) START 1-2 WKS BEFORE PATCHES Active cyclobenzaprine (Flexeril) 5 MG tablet Active hydrOXYzine HCl (Atarax) 25 MG tablet Take 1 tablet 4 times a day by oral route as needed. 0 Active acetaminophen (Tylenol) 500 MG tablet Take 1 tablet (500 mg) by mouth every 6 (six) hours if needed for mild pain for up to 20 doses. 20 tablet 5 Active ibuprofen 600 MG tablet Take 1 tablet (600 mg) by mouth every 6 (six) hours if needed for mild pain for up to 20 doses. 20 tablet 5 Active azithromycin (Zithromax) 250 MG tablet Take 2 tabs on day 1 followed by 1 tab per day for 4 days 6 tablet 5 Active Active Problems Problem Noted Date Diagnosed Date Dyspnea 09/14/2024 Tobacco dependence syndrome 09/14/2024 Rhinosinusitis 04/23/2024 Assessment & Plan (04/24/2024 12:00 [...] (10/08/2022 3:07 PM EDT): Referring urgently to [facility] Care Management. Lumbar disc herniation 09/14/2022 PTSD [...] intent currently. She has a Psychiatrist through [facility] and I explained that she needs to [...] to utilize. Avoid being home alone. Reviewed 988 hotline and encouraged to call as needed. [...] Alopecia areata 02/19/2018 Tobacco use disorder 01/29/2018 Alopecia 04/22/2007 Malaise and fatigue 01/14/2007 Urticaria 12/11/2006 Female genital symptoms 08/20/2006 Common cold 07/29/2006 Encounters Date Type Department Care Team Description 03/31/2025 Telephone [facility] MEDICINE [address] [place], [place] [phone] Maliha Bashir MD Nurse Triage from Last 3 Months Immunizations Immunization Administration Dates Next Due Influenza injectable quadrivalent [...] Sign Reading Time Taken Comments Blood Pressure 115/73 11/26/2024 3:14 PM EDT Pulse 79 11/26/2024 3:14 PM EDT Temperature 36.6 C (97.8 F) 11/26/2024 3:14 PM EDT Respiratory Rate 18 11/26/2024 3:14 PM EDT Oxygen Saturation 99% 11/26/2024 3:14 PM EDT Inhaled Oxygen Concentration - - Weight 72.1 kg (159 lb) 11/26/2024 3:14 PM EDT Height 157.5 cm (5' 2 ) 11/26/2024 3:14 PM EDT Body Mass Index 29.08 11/26/2024 3:14 PM EDT Plan of Treatment Health Maintenance Due Date Last Done Comments CT Colonography 1977 Colonoscopy 1977 Colorectal Cancer Screening 1977 FIT DNA/Cologuard 1977 FIT 1977 FOBT 1977 Sigmoidoscopy 1977 Disability Screening 1977 Alcohol/Substance Use Screening 1989 Family Planning (PISQ) 01/04/1992 Hepatitis B Vaccines (1 of 3 - 19+ 3-dose series) 01/04/1996 Pap Smear 1998 Cervical Cancer Screening 2007 HPV/Cotest 2007 Pneumococcal Vaccine: Pediatrics (0 to 5 Years) and At-Risk Patients (6 to 49) Years (2 of 2 - PCV) 04/07/2012 04/07/2011 Mammogram 2017 DTaP/Tdap/Td Vaccines (2 - Td or Tdap) 04/07/2021 04/07/2011 Depression Monitoring 04/09/2023 10/08/2022, 022 SDOH Screening 06/12/2023 06/12/2022 COVID-19 Vaccine ( - season) 2025 10/15/2020 Influenza Vaccine (#1) 2025 08/31/2015 Dental Oral Exam 03/11/2025 09/07/2024, 02/11/2024 Dental Prophylaxis 03/11/2025 09/07/2024, 0 02/20/2024, 05/16/2022, Additional history exists Dental X-Ray: Bitewings 09/15/2025 09/15/19 25, 02/11/2024, 04/30/2022, Additional history exists Tobacco Screening 10/02/2025 10/02/2024 Lipid Panel 02/16/2026 02/16/2021 Zoster Vaccines (1 [...] patient's age to complete this topic Meningococcal B Vaccine Aged Out No l onger eligible based on patient's age to complete [...] Procedure Name Priority Date/Time Associated Diagnosis Comments BITEWING - SINGLE RADIOGRAPHIC IMAGE Routine 09/14/2024 3:30 PM EDT PROPHYLAXIS - ADULT Routine 09/07/2024 3 :00 PM EST Periodontal disease Dental caries PERIODIC ORAL EVALUATION - ESTABLISHED PATIENT Routine 09/07/2024 3:00 PM EST Periodontal disease Dental caries INTRAORAL [...] HEPATITIS C ANTIBODY NON-REACT RUSLAN NON-REACT RUSLAN [facility] INDEX 0.02 <1.00 [facility] Comment: HCV antibody was non-reactive. There is no laboratory evidence of HCV infection. In most cases, no further action is required. However, if recent HCV exposure is suspected, a test for HCV RNA (test code 42998) is suggested. For additional information please refer to http://education.Pile[employer] Software/faq/PZT59r8 (This link is being provided for informational/ educational purposes only.) 02/16/2021 8:55 AM EDT Maliha Bashir MD HISTORICAL/NON ORDERABLE LABS Final Result [facility] [address] * HIV 1/2 ANTIGEN/ANTIBODY,FOURTH GENERATION W/RFL (02/16/2021 8:55 AM EDT) HIV-1/2 ANTIGEN AND ANTIBODIES, 4TH GENERATION W/ REFLEX NON-REACT RUSLAN NON-REACT RUSLAN [facility] Comment: HIV-1 antigen and HIV-1/HIV-2 antibodies were not detected. There is no laboratory evidence of HIV infection. PLEASE NOTE: This information has been disclosed to you from records whose confidentiality may be protected by state law. If your state requires such protection, then the state law prohibits you from making any further disclosure of the information without the specific written consent of the person to whom it pertains, or as otherwise permitted by law. A general authorization for the release of medical or other information is NOT sufficient for this purpose. For additional information please refer to http://education.[employer]/faq/YTN562 (This link is being provided for informational/ educational purposes only.) The performance of this assay has not been clinically validated in patients less than 2 years old. 02/16/2021 8:55 AM EDT us Maliha Bashir MD LAB BLOOD ORDERABLES Final Re sult Performing Organization Address [facility] de Phone Number [facility] [address] [place] [address], * (ABNORMAL) LIPID PANEL, STANDARD (02/16/2021 8:55 AM EDT) Chol/HDLC Ratio 6.1(H) <5.0 (calc) [facility] Cholesterol, Total 214(H) <200 mg/dL [facility] HDL Cholesterol 35(L) > OR = 50 mg/dL [facility] LDL Cholesterol 159(H) mg/dL (calc) [facility] Comment: Reference range: <100 Desirable range <100 mg/dL for primary prevention; <70 mg/dL for patients with CHD or diabetic patients with > or = 2 CHD risk factors. LDL-C is now calculated using the Warren-Brooks calculation, which is a validated novel method providing better accuracy than the Friedewald equation in the estimation of LDL-C. Warren SS et al. CONSTANCE. 2013;310(19): 9179-3714 (http://education.First To File.R[employer]/faq/CAA997) Non-HDL Cholesterol 179(H) <130 mg/dL (calc) [facility] Comment: For patients with diabetes plus 1 major ASCVD risk factor, treating to a non-HDL-C goal of <100 mg/dL (LDL-C of <70 mg/dL) is considered a therapeutic option. Triglycerides 93 <150 mg/dL [facility] 02/16/2021 8:55 AM EDT us Maliha Bashir MD LAB BLOOD ORDERABLES Final Re sult [facility] [address] from Last 3 Months or Most Recently Relevant to Health Maintenance Insurance [facility] C3 DENTAL-[facility] MEDICAID STAND ADULT Care Teams Furnace Repairer Helper Relationship Specialty Start Date End Date Maliha Bashir MD [address] [place] [address] PCP - General Family Medicine 03/08/21
--- OUTSIDE RECORDS SUMMARY | 2025-04-01 20:13 | XMS_ITS | Encounter Summary ---
Author Organization [employer] Address [address] [place] [address] [address] [place] [address] Care Team Providers Care Trail Construction Worker Name Role Phone Maliha Bashir MD Primary Care Provider [phone] Encounter Details Date Type Department Care Team ([facility] st Contact Info) Description 02/11/2023 Telephone [facility] MED & PEDS [address] [place], [place] [phone] Maliha Bashir MD [address] [place] [address] Social History Tobacco Use Types Packs/Day Years [...] as of this encounter Plan of Treatment Not on file documented as of this encounter Visit Diagnoses Not on filedocumented in this encounter Additional Health Concerns Assessment Noted Time PHQ-9 Depression Total Score: 21 022 1:20 PM EST documented as of this encounter Care Teams Trail Construction Worker Relationship Specialty Start Date End Date Maliha Bashir MD [address] [place] [id number] PCP - General Family Medicine 03/08/21 documented as of this encounter
--- OUTSIDE RECORDS SUMMARY | 2025-04-01 20:13 | XMS_ITS | Encounter Summary ---
Author Organization [employer] Address [address] [facility] [address] [place] [address] Care Team Providers Care Acupressurist Name Role Phone Maliha Bashir MD Primary Care Provider [phone] Reason for Visit * Reason Onset Date Comments uanble to post insurance 09/14/2024 Encounter Details Date Type Department Care Team (Late st Contact Info) Description 09/14/2024 Telephone [facility] ADULT DENTAL [address] [place] [address] Cherelle Ruby uanble to post insurance Social History Tobacco Use Types Packs/Day Years [...] with others, in a hotel, in a residential, living outside on the street, on a [...] AM EDT documented as of this encounter Miscellaneous Notes * Telephone Encounter - Lilo Cain - 09/14/2024 1:06 PM EDT Patient is coming in for 3:30 ER appt. Unable to post insurance portal not running on PAR side DR documented in this encounter Plan of Treatment Not on file documented as of this encounter Visit Diagnoses Not on filedocumented in this encounter Additional Health Concerns Assessment Noted Time PHQ-9 Depression Total Score: 21 022 1:20 PM EST documented as of this encounter Care Teams Acupressurist Relationship Specialty Start Date End Date Maliha Bashir MD [address] [place] [address] PCP - General Family Medicine 03/08/21 documented as of this encounter
--- OUTSIDE RECORDS SUMMARY | 2025-04-01 20:13 | XMS_ITS | Encounter Summary ---
Author Organization [employer] Address [address] [facility] [address] [place] [address] Care Team Providers Care Physical Plant Manager Name Role Phone Maliha Bashir MD Primary Care Provider Reason for Visit * Reason Onset Date Comments Nurse Triage 03/31/2025 Encounter Details Date Type Department Care Team ([facility] Contact Info) Description 03/31/2025 Telephone [facility] MEDICINE [address] [place] [address] Maliha Bashir MD [address] [place] [address] Nurse Triage Social History Tobacco Use Types Packs/Day Years [...] with others, in a hotel, in a fdc, living outside on the street, on a [...] encounter Miscellaneous Notes * Telephone Encounter - Craina Reyna RN - 03/31/2025 2:31 PM EDT called pt to triage, spoke to pt. pt states off and on for several months, has been having left chest pain. pt reports pain radiates down left arm and into the hand with some numbness. pt reports yellow mucous and a bad smell in her nose however denies any actual congestion, cough, fevers, or otherassociated illness symptoms. pt states mild sob and currently having palpitations/feeling of rapid heartbeat and mild chest discomfort. due to chest pain, and palpitations with mild sob, am recommending pt to seek ER evaluation and to call back later in the week for any needed follow up. advised ptnot to drive herself as she may have some dizziness or faintness related to the palpitations. pt understands and agrees with plan. insurance verified. Protocol Used: Chest Pain (Adult) Protocol-Based Disposition: Go to ED/[facility] Now (or to Office Now per Policy) Positive Triage Question: * Chest pain lasting longer than 5 minutes and occurred in last 3 days (72 hours) (Exception: Feelsexactly the same as previously diagnosed heartburn and has accompanying sour taste in mouth.) * All higher-acuity triage questions were negative Care Advice Discussed: * Reasons To Call Back - You become worse * Telephone Encounter - Bharath Lopez 03/31/2025 2:18 PM EDT Worsening chest pain . Last seen in november 2024 for same reason Duration 2x months Pt reports pain comes and goes documented in this encounter Plan of Treatment Not on file documented as of this encounter Visit Diagnoses Not on filedocumented in this encounter Additional Health Concerns Assessment Noted Time PHQ-9 Depression Total Score: 21 022 1:20 PM EST documented as of this encounter Care Teams Physical Plant Manager Relationship Specialty Start Date End Date Maliha Bashir MD [address] [place] [address] PCP - General Family Medicine 03/08/21 documented as of this encounter
--- NOTE | 2025-04-01 20:39 | PC.NURSE ---
pt began yelling at this rn stating it has been too long this rn made pt aware that pt is advised to be seen by ed provider pt states i don't feel like waiting supercharger mechanic made aware
== END 2025-04-01 20:43 | disposition left against medical advice (07) ==
PROVIDERS: Physician Assistant Medical; Emergency Provider Student in an Organized Health Care Education/Training Program
DX: J06.9 Acute upper respiratory infection, unspecified (principal); Z53.21 Procedure and treatment not carried out due to patient leaving prior to being seen by health care provider
CPT/HCPCS: 71046; 80048; 80076; 83735; 84484; 85025; 87502; 87635; 93005; 99283

== ENCOUNTER → 2025-04-01 17:37 | Outpatient (BNV) | payer MEDICAID, SELFPAY | PROVIDERS: Emergency Provider Student in an Organized Health Care Education/Training Program; Visit Provider Internal Medicine Cardiovascular Disease | DX: I45.10 Unspecified right bundle-branch block (principal) | CPT/HCPCS: 93010 ==

== ENCOUNTER → 2025-04-01 18:14 | Outpatient (BNV) | payer MEDICAID, SELFPAY | PROVIDERS: Emergency Provider Student in an Organized Health Care Education/Training Program; Visit Provider Radiology Vascular & Interventional Radiology | DX: R07.9 Chest pain, unspecified (principal) | CPT/HCPCS: 71046 ==